=== PATIENT | female | born 1945 | race Caucasian/White ===

== ENCOUNTER 2017-03-11 00:14 | Inpatient (IN) ==
[2017-03-11 01:06] LABS: MANUAL DIFF NEEDED? NO
[2017-03-11 01:12] LABS: BASO% 0.1 % (0.0-0.8); EOS# 0.32 X1000 (0.0-0.7); EOS% 3.5 % (0.0-10.0); HEMATOCRIT 33.9 % (37.0-47.0); HEMOGLOBIN 10.6 g/dL (12.0-16.0); IMM GRAN# 0.04 X1000 (0.0-0.04); IMM GRAN% 0.4 % (0.0-0.5); LYMPH# 1.38 X1000 (1.2-3.4); LYMPH% 14.9 % (20.5-51.1); MCH 26.6 PG (27-31); MCHC 31.3 g/dL (33-37); MONO# 0.55 X1000 (0.11-0.59); MONO% 5.9 % (1.7-9.3); MPV 11.6 FL (7.4-10.4); NEUT% 75.2 % (42.2-75.2); PLT 237 X1000 (130-400); RBC 3.99 XMIL (4.2-5.4)
[2017-03-11 01:35] LABS: AGAP 12; ALBUMIN 3.1 g/dL (3.5-5.0); ALKALINE PHOSPHATASE 91 U/L (32-104); BUN 13 mg/dL (8-22); CALCIUM 8.9 mg/dL (8.8-10.2); CHLORIDE 102 mmol/L (98-107); COSMO 285; GOT 10 U/L (10-30); GPT 10 U/L (10-36); POTASSIUM 4.4 mmol/L (3.5-5.1); SODIUM 140 mmol/L (136-145); TCO2 26 mmol/L (25-35); TOTAL BILIRUBIN 0.35 mg/dL (0.20-1.00)
[2017-03-11] MEDS ORDERED: DILAUDID IV ONE (02:08)
[2017-03-11] MEDS ORDERED: ZOFRAN IV ONE (02:08)
--- NOTE | 2017-03-11 02:31 | PROVIDER DOCUMENTATION ---
This chart was entered by Kanwal Cardona Scribe, acting as scribe for Lázaro Kirkland MD. HPI-Abdominal Pain/GI Problem - General Stated Complaint: UPPER GI BLEED Time Seen by Provider: 03/11/17 00:18 Source: patient Allergies/Adverse Reactions: Patient Allergies Allergy/AdvReac Type Severity Reaction Status Date / Time Penicillins Allergy Severe ANAPHYLAXIS Verified 03/11/17 00:32 Home Medications: Home Medication List Medication Instructions Recorded Confirmed Last Taken Type Acetaminophen [Tylenol] 2 each PO DIRECTED 03/11/17 03/11/17 Unknown History Aspirin [Aspirin EC] 81 mg PO QAM 03/11/17 03/11/17 Unknown History Famotidine [Pepcid] 20 mg PO DAILY 03/11/17 03/11/17 Unknown History I-Car 1 tab PO QAM 03/11/17 03/11/17 Unknown History Insulin Glargine [Lantus] 47 units SUBQ QHS 03/11/17 03/11/17 Unknown History Linaclotide [Linzess] 145 mcg PO DIRECTED 03/11/17 03/11/17 Unknown History Lisinopril 20 mg PO QAM 03/11/17 03/11/17 Unknown History Nut.sup,Spec.frm,l-Fr,Iron/Fos 3 oz PO DIRECTED 03/11/17 03/11/17 Unknown History [Twocal Hn Liquid] Tramadol [Ultram] 50 mg PO DIRECTED 03/11/17 03/11/17 Unknown History - History of Present Illness-ABD Nature of Presenting Problems: 71 Y/O F presets to ED with vomiting reported as being brown emesis, normal now , c/o of upper ABD pain, disoriented. Abdominal Pain Onset Location: reports: RUQ, LUQ Pain Radiation: reports: no radiation Quality of Pain: reports: aching Severity in ED: reports: moderate Onset/Duration: reports: this morning Timing: reports: still present, improving Activities at Onset: reports: none Associated Symptoms: reports: vomiting # of Vomiting Episodes: 1 Emesis Description: reports: other (brown) Review of Systems - Adult - REVIEW OF SYSTEMS - ADULT Constitutional: denies: chills, fever Eyes: reports: no symptoms reported Ears, Nose, Mouth & Throat: reports: no symptoms reported Cardiovascular: reports: no symptoms reported Respiratory: reports: no symptoms reported Gastrointestinal: reports: abdominal pain, vomiting Genitourinary: reports: no symptoms reported Musculoskeletal: reports: no symptoms reported Integumentary: reports: no symptoms reported Neurological: reports: no symptoms reported Psychiatric: reports: no symptoms reported Endocrine: reports: no symptoms reported Hematologic/Lymphatic: reports: no symptoms reported Allergic/Immunologic: reports: no symptoms reported All Other Systems: Reviewed and Negative Past History - Adult - PAST MEDICAL HISTORY-ADULT Review of Records: reports: Old Records Reviewed, Nursing Assessment Review, Medications Reviewed, Social history reviewed & non-contributory. Cardiovascular: reports: hyperlipidemia Gastrointestinal: reports: GERD Genitourinary: reports: dialysis Musculoskeletal: reports: chronic pain Neurological: reports: CVA, dementia Endocrine/Immune: reports: Diabetes, thyroid disorder - PRIOR SURGERIES/PROCEDURES Surgical/Procedure History: reports: orthopedic (extremity) (right elbow, left wrist) - PRIOR HOSPITALIZATIONS Prior Hospitalizations: reports: for other non-related - IMMUNIZATION STATUS Childhood Immunizations: See Nurse Assessment Flu Vaccine: See Nurse Assessment - FAMILY HISTORY Family History: reviewed, not pertinent - SOCIAL HISTORY Smoking: non-smoker Substance Use: none/never Alcohol Use Frequency: never Living Situation: family Physical Exam-General - PHYSICAL EXAM-ADULT Initial Vital Signs Reviewed: Yes - CONSTITUTIONAL General Appearance: no apparent distress, obese, other (disoriented) - EYES Eyes: PERRL/EOMI, pink conjunctivae, fundi clear, no AV nicking - HEAD, EARS, NOSE, MOUTH & THROAT HENMT: normocephalic/atraumatic, moist mucous membranes, normal ENT inspection, TMs normal, pharynx normal - NECK Neck: non-tender, full range of motion, supple, normal inspection - RESPIRATORY Respiratory: chest non-tender, lungs clear, normal breath sounds - CARDIOVASCULAR Cardiovascular: normal peripheral pulses, regular rate, rhythm - GASTROINTESTINAL (ABDOMEN) Abdominal Exam: normal bowel sounds, non tender, soft - GENITOURINARY Rectal Exam: other (rectal exam premored unable to collect stool.) - LYMPHATIC Lymphatic: no adenopathy - MUSCULOSKELETAL Back Exam: normal inspection, no CVA tenderness, no vertebral tenderness Extremity: normal range of motion - SKIN Integumentary: normal color, normal turgor, warm/dry - PSYCHIATRIC Psych/Mental Status: disoriented x 3 Progress - PLAN OF CARE/RESULTS Progress/Plan/Lab Results: Orders Category Date Time Status FLAT/UPRIGHT ABD/1 VIEW CHEST [RAD] Stat Exams 03/11/17 00:18 Ordered CBC WITH ELECTRONIC DIFF [HEME] Stat Lab 03/11/17 00:18 Uncollected CMP [COMPREHENSIVE METABOLIC PANEL] [CHEM] Stat Lab 03/11/17 00:18 Uncollected Result Diagrams: 03/11/17 00:35 03/11/17 00:35 - XRAY 1 XRAY Study: Abdomen Impression: Abnormal XRAY Interpretation: small bowel obstruction - CONSULTS/PCP/HOSPITALIST Notification #1 *Consult/PCP/Hospitalist*: Dr. Cortez Time Discussed: 02:07 Reason/Comments: Admit Consult Disposition: Admit (accepted) Departure - Departure Time of Disposition Decision: 01:55 DIAGNOSIS: SBO (small bowel obstruction) Disposition: ADMITTED INPATIENT 09 Certified Medical Emergency: Emergent Condition: Good Referrals and Follow-Ups: None,PCP [Primary Care Provider] - - Critical Care Note This patient required my direct personal management.: No This chart was documented by the indicated scribe, (Kanwal Cardona Scribe) and accurately reflects the services I performed and decisions made by me, Lázaro Kirkland MD, as attested by the provider's signature.
[2017-03-11] MEDS: NS 1,000 ML IV SCH ×3 (05:51→18:06)
[2017-03-11] MEDS: HUMULIN R SUBQ SCH ×4 (06:24→22:59)
[2017-03-11 06:48] LABS: PROTIME 10.5 Seconds (9.2-11.7); PTT 26.4 Seconds (22.0-36.0)
--- NOTE | 2017-03-11 07:13 | HISTORY AND PHYSICAL ---
CHIEF COMPLAINT: Abdominal pain, nausea and vomiting. HISTORY OF PRESENTING ILLNESS: A 71-year-old, obese female with a history of diabetes mellitus type 2, GERD, hypertension, bipolar disorder, who is a resident of [facility], was brought to the emergency department because patient had some brown emesis and abdominal pain. Patient was seen in the ER. She had imaging done, and it was read by ER physician as a small bowel obstruction. Due to these presenting symptoms, it was thought that patient would need hospitalization for further management. At the time of my examination, patient complained of abdominal cramping and being nauseated. However she denied any fevers, chills, chest pain, shortness of breath, hemoptysis or any weight changes. Patient is a poor historian. PAST MEDICAL HISTORY: 1. Diabetes mellitus type 2. 2. GERD. 3. Hypertension. 4. Bipolar disorder. 5. Dementia. 6. Hypothyroidism. PAST SURGICAL HISTORY: Tubal ligation. ALLERGIES: Penicillin. CURRENT MEDICATIONS: As listed on the MAR. SOCIAL HISTORY: She denies any history of smoking, alcohol or illicit drug use. She is basically wheelchair bound. FAMILY HISTORY: No history of coronary disease. REVIEW OF SYSTEMS: Twelve point review of systems as listed in the HPI. Other systems negative. PHYSICAL EXAMINATION: GENERAL: Obese female. She is without any respiratory distress. VITAL SIGNS: Temperature 98.4 degrees, pulse 100, respirations 24, blood pressure 129/88. HEENT: Atraumatic, normocephalic. Extraocular movements intact. PERRLA. NECK: No masses. CHEST: Clear to auscultation. CARDIOVASCULAR: Regular rate and rhythm. ABDOMEN: Soft. Diffuse tenderness. EXTREMITIES: +1 edema. NEUROLOGIC: She is awake, alert, oriented x2. : No bladder distention. SKIN: Warm. LABORATORIES AND STUDIES: WBC 9.25, hemoglobin 10.6, hematocrit 33.9, platelets 237,000 sodium 140, potassium 4.4, chloride 102, CO2 of 26, BUN is 13, creatinine 0.6, glucose is 201. ASSESSMENT: A 71-year-old female with a history of diabetes mellitus type 2, GERD, hypertension and bipolar disorder presented to emergency department after she was found at the residential to have brown emesis and complaining of abdominal pain. She was evaluated in the ER. She has had imaging done which did show small bowel obstruction. The patient will need hospitalization for further management. 1. Small bowel obstruction. 2. Diabetes mellitus type 2. 3. Hypertension. 4. Dementia. 5. Bipolar disorder. 6. Morbid obesity. PLAN: 1. We will admit patient to medical floor with telemetry. 2. We will keep patient NPO. Continue support treatment with IV fluids, antiemetics and pain control. 3. Continue serial abdominal exams. If she does not improve will consider consulting general surgery. 4. Continue patient on sliding scale insulin regimen. Monitor blood glucose. 5. We will monitor blood pressure. Resume antihypertensive agents. 6. Resume home medications that she was given at the residential. 7. Put patient on DVT prophylaxis with SCDs. 8. We will continue to follow and reassess. cc: Jonah Cortez MD
--- NOTE | 2017-03-11 08:13 | Diag Imaging Result Document ---
PROCEDURE NAME: FLAT/UPRIGHT ABD/1 VIEW CHEST - 03/11/2017 FLAT AND UPRIGHT ABDOMEN: FINDINGS: There is gas throughout the colon and small bowel with stool in the rectosigmoid and ascending colon. There is diverticulosis in the descending colon. There is no evidence of organomegaly or mass. IMPRESSION: Constipation and possible ileus. AP CHEST: FINDINGS: There is a large hiatal hernia. There are some granulomata in the left lower lobe. Compared to the previous study of 03/13/2015, there has been no significant change. IMPRESSION: Hiatal hernia.
[2017-03-11] MEDS ORDERED: NS 250 ML ONE (08:46)
[2017-03-11 11:58] LABS: IRON SATURATION 12 %; TIBC 170 ug/dL; TOTAL IRON 21 ug/dL (49-151); UNBOUND IRON 149 ug/dL (112-346)
--- NOTE | 2017-03-11 15:52 | PROGRESS NOTE ---
DATE: 03/11/2017 Today Ms. Arroyo referred to be doing fine. Denies any more nausea and no more vomiting. Denies any diarrhea. OBJECTIVE: Vital signs: Blood pressure 91/48, pulse 100, respirations 19, temperature is 98.0 degrees. General: Ms. Arroyo is a 71-year-old morbidly obese, female. She was in bed. No distress. HEENT: Mucosa is slightly dry. Anicteric. Acyanotic. Neck: Supple. Chest: Good air entry bilateral. No crepitations. No rhonchi. Cardiovascular: Regular rate and rhythm. Slightly tachycardic. Abdomen: Distended, nontender. Bowel sounds are present. Did not appreciate any hepatosplenomegaly. Extremities: Maybe trace pedal edema however patient is obese. [employer] APPELLATE LAW CLERK: Patient is alert, oriented x3. No focal neurological deficit. LABORATORY DATA: WBC 9.25, hemoglobin is 10.6, platelet count is 237,000. Chemistries reviewed, completely normal except for glucose of 201. Iron level is 21. Ferritin is 42. B12 is 218 and folate is 4.9. TSH is 0.01 and free T4 is 2.74 consistent with lab hyperthyroidism. An x-ray today shows constipation and possible ileus. ASSESSMENT: 1. Abdominal pain on presentation. An x-ray consistent with constipation with possible ileus. The patient refers to be doing a whole lot better. We are going to start her on clear liquids to see if she is able to tolerate. 2. Diabetes mellitus, controlled. 3. Lab evidence of hyperthyroidism. The patient is overweight, seems to be constipated which are not features of hyperthyroidism. I think she probably might have some form of thyroiditis, maybe Rita's in the face where the enzymes will be elevated. I will therefore do a TP0. We will do thyroid stimulating antibiotics and do radioiodine uptake to see if it is consistent with hyperthyroidism or Graves or it is a thyroiditis. For now we would only put the patient on propranolol to help with the peripheral conversion of all the thyroid hormones. 4. Multi-vitamin/mineral deficiencies. The patient's lab work shows iron deficient. Also B12 and folate deficiency. Not quite sure if it is all nutritional from not eating or is absorptive issues. I will do an intrinsic factor to check on the B12 and make sure she does not have any pernicious anemia since we think she probably has some autoimmune disease with thyroid. 5. History of bipolar disorder. Noted. 6. Dehydration. Will hydrate the patient. I think in general Ms. Arroyo is doing a lot better. We are going to continue with the current hydration and start her on some clear liquids. Do some studies on her thyroid and hopefully will be able to get her out by tomorrow. cc: Ziyad Rose MD MTDD
[2017-03-12] MEDS: NS 1,000 ML IV SCH ×4 (04:14→17:39)
[2017-03-12] MEDS: HUMULIN R SUBQ SCH ×4 (06:29→20:57)
[2017-03-12 06:40] LABS: MANUAL DIFF NEEDED? NO
[2017-03-12 06:44] LABS: BASO% 0.1 % (0.0-0.8); EOS# 0.56 X1000 (0.0-0.7); EOS% 8.3 % (0.0-10.0); HEMATOCRIT 31.1 % (37.0-47.0); HEMOGLOBIN 9.6 g/dL (12.0-16.0); IMM GRAN# 0.02 X1000 (0.0-0.04); IMM GRAN% 0.3 % (0.0-0.5); LYMPH# 1.68 X1000 (1.2-3.4); MCH 26.5 PG (27-31); MCHC 30.9 g/dL (33-37); MCV 85.9 FL (81-99); MONO# 0.43 X1000 (0.11-0.59); MONO% 6.4 % (1.7-9.3); MPV 11.5 FL (7.4-10.4); NEUT% 59.9 % (42.2-75.2); PLT 204 X1000 (130-400); RBC 3.62 XMIL (4.2-5.4)
[2017-03-12 07:11] LABS: AGAP 10; BUN 8 mg/dL (8-22); CALCIUM 8.6 mg/dL (8.8-10.2); CHLORIDE 108 mmol/L (98-107); COSMO 282; POTASSIUM 4.6 mmol/L (3.5-5.1); SODIUM 143 mmol/L (136-145); TCO2 25 mmol/L (25-35)
[2017-03-12] MEDS: VITAMIN B-12 PO SCH (10:23)
[2017-03-12] MEDS: FOLIC ACID PO SCH (10:23)
--- NOTE | 2017-03-12 11:55 | PROGRESS NOTE ---
DATE: 03/12/2017 SUBJECTIVE: Today, Ms. Arroyo referred to be doing fine. She actually wished she could be going home. She has not had any bowel movement. OBJECTIVE: Vital Signs: Blood pressure is 147/51, pulse of 83, respirations 19, temperature is 98.0. General: Ms. Arroyo is a 71-year-old, morbidly obese, female. She is in bed, no distress. HEENT: Mucosa is pink and moist. Anicteric. Acyanotic. Neck: Supple. Chest: Clear. Cardiovascular: Regular rate and rhythm. Abdomen: Soft, nontender. Bowel sounds are present. Extremities: No pedal edema. JEWELRY SALES: Patient is alert. No focal neurological deficit. LABORATORY DATA: WBC is 6.73, hemoglobin is 9.6, platelet count of 204. Chemistry is reviewed, completely normal. Patient's vitamin D level is 5.0. ASSESSMENT AND PLAN: 1. Abdominal pain, nausea, vomiting on presentation. X-ray consistent with constipation with possible ileus. The patient does not have any more vomiting. She is tolerating her diet. Has not had any bowel movement. We will put the patient on MiraLAX to help with bowel movements. 2. Lab evidence of hyperthyroidism. We are still pending the thyroid radioiodine uptake test and also antibiotics. So far TPO is negative. 3. Multivitamin and mineral deficiencies (B12, folate and vitamin D). We would replace all of these. 4. History of bipolar disorder noted. 5. Clinical dehydration, will continue with gentle IV fluids. In general, Ms. Arroyo continues to be stable. Has not had any bowel movements, so will go ahead and give her some MiraLAX and repeat a KUB, to make sure there is not any underlying obstructive pattern. Will continue with the IV fluids. We will start the patient on propranolol and will be waiting Tuesday to do the radioactive thyroid scan. cc: Ziyad Rose MD
--- NOTE | 2017-03-12 13:14 | Diag Imaging Result Document ---
PROCEDURE NAME: KUB ABDOMEN - 03/12/2017 PORTABLE AP SUPINE ABDOMEN: COMPARISON: Compared with 03/11/2017. FINDINGS: There has been development of gaseous distention of the stomach. There is gas visible in nondistended to slightly distended small bowel and colon, with an overall amount of bowel gas visible mildly decreased compared to the previous exam. There is decreased retained fecal debris in the colon compared to previous exam, but there is increased retained fecal debris in the rectum. IMPRESSION: Development of gaseous distention of stomach. Nonspecific bowel gas pattern otherwise. Decreased retained fecal debris in the colon, but increased retained fecal debris in the rectum compared to the previous exam. This may or may not relate to early rectal fecal impaction.
[2017-03-12] MEDS: INDERAL PO SCH ×2 (13:20→17:30)
[2017-03-12] MEDS: VITAMIN D PO SCH (13:20)
[2017-03-12] MEDS: MIRALAX PO SCH (13:21)
[2017-03-12] MEDS: ZOFRAN IV PRN ×2 (15:36→20:19)
[2017-03-12] MEDS: TORADOL IV PRN (20:19)
[2017-03-13] MEDS: NS 1,000 ML IV SCH ×2 (06:06→19:20)
[2017-03-13 06:17] LABS: MANUAL DIFF NEEDED? NO
[2017-03-13 06:21] LABS: BASO% 0.2 % (0.0-0.8); EOS# 0.49 X1000 (0.0-0.7); EOS% 8.4 % (0.0-10.0); HEMATOCRIT 28.7 % (37.0-47.0); HEMOGLOBIN 8.8 g/dL (12.0-16.0); LYMPH# 1.57 X1000 (1.2-3.4); MCH 26.3 PG (27-31); MCHC 30.7 g/dL (33-37); MCV 85.9 FL (81-99); MONO# 0.45 X1000 (0.11-0.59); MONO% 7.7 % (1.7-9.3); MPV 11.2 FL (7.4-10.4); NEUT% 56.7 % (42.2-75.2); PLT 199 X1000 (130-400); RBC 3.34 XMIL (4.2-5.4)
[2017-03-13 06:42] LABS: AGAP 10; BUN 10 mg/dL (8-22); CALCIUM 8.4 mg/dL (8.8-10.2); CHLORIDE 110 mmol/L (98-107); COSMO 287; SODIUM 145 mmol/L (136-145); TCO2 25 mmol/L (25-35)
[2017-03-13] MEDS: HUMULIN R SUBQ SCH ×4 (07:51→23:13)
[2017-03-13] MEDS: INDERAL PO SCH ×3 (09:37→16:44)
[2017-03-13] MEDS: FOLIC ACID PO SCH (09:37)
[2017-03-13] MEDS: VITAMIN B-12 PO SCH (09:37)
[2017-03-13] MEDS: VITAMIN D PO SCH (09:37)
[2017-03-13] MEDS: MIRALAX PO SCH (09:37)
--- NOTE | 2017-03-13 13:57 | PROGRESS NOTE ---
DATE: 03/13/2017 SUBJECTIVE: Today Ms. Arroyo refers to be doing fine. She did not actually have any major complaints. OBJECTIVE: Vital signs: Blood pressure is 157/74, pulse of 74, respirations 20, temperature is 97.9 degrees. General: Ms. Arroyo is a 71-year-old, morbidly obese, female. She was in bed. No distress. HEENT: Mucosa is pink and moist. Anicteric. Acyanotic. Neck: Supple. Chest: Clear. Cardiovascular: Regular rate and rhythm. No murmurs. No rubs. No gallops. Abdomen: Soft. Extremities: No pedal edema. BOOKING MANAGER: Patient is alert and oriented x4. LABORATORY DATA: WBC is 5.82, hemoglobin is 8.8, platelet count is 199,000. Chemistry is reviewed, completely normal. Intrinsic factor block antibody is negative. IMAGING STUDIES: A KUB done yesterday showed development of gaseous distention of the stomach and decreased retained fecal debris. ASSESSMENT: 1. Abdominal pain, nausea, and vomiting on presentation. This has improved. We think it is related to underlying constipation. 2. Constipation, improved. 3. Laboratory evidence of hyperthyroidism. Patient is pending radioiodine uptake test. 4. Multivitamin and mineral deficiencies (nutritional cause). Will continue to replace this. 5. Clinical dehydration. Patient is getting gentle IV fluids. 6. Bipolar disorder, noted. PLAN: In general, I think Ms. Arroyo is doing fine. We will continue with the gentle hydration. We will also continue with the current symptomatic management for the constipation. We are pending the radioiodine uptake test tomorrow and hopefully discharge her. cc: Ziyad Rose MD
[2017-03-13] MEDS: TORADOL IV PRN (19:21)
[2017-03-14] MEDS: HUMULIN R SUBQ SCH ×3 (06:44→17:38)
[2017-03-14] MEDS: NS 1,000 ML IV SCH (07:34)
--- NOTE | 2017-03-14 09:21 | Diag Imaging Result Document ---
PROCEDURE NAME: KUB ABDOMEN - 03/14/2017 KUB ABDOMEN: Compared with 03/12/2017. FINDINGS: There is gas visible in nondistended colon. There is less retained fecal debris in the rectum compared to the previous exam. There is gas visible within multiple small-bowel loops. There is no substantial gaseous small-bowel distention which would suggest small-bowel obstruction identified, however. IMPRESSION: Decrease in retained fecal debris in the rectum compared to the previous exam. Nonspecific bowel gas pattern. There is gas visible within multiple mostly nondistended small- bowel loops, but there is no indication of small-bowel obstruction.
[2017-03-14] MEDS: VITAMIN B-12 PO SCH (10:42)
[2017-03-14] MEDS: VITAMIN D PO SCH (10:42)
[2017-03-14] MEDS: FOLIC ACID PO SCH (10:42)
[2017-03-14] MEDS: MIRALAX PO SCH (10:42)
[2017-03-14] MEDS: INDERAL PO SCH ×3 (10:43→20:47)
--- NOTE | 2017-03-14 15:20 | PROGRESS NOTE ---
DATE: 03/14/2017 SUBJECTIVE: Today, Ms. Arroyo refers to be doing a whole lot better. She just did the 1st part of her testing for the radio uptake testing. OBJECTIVE: Vital signs: Blood pressure is 151/61, pulse of 71, respirations 20 , temperature 98.2 degrees. General: Ms. Arroyo is a 69-year-old female. She is in bed and does not seem to be in any remarkable distress. HEENT: Mucosa is pink and moist. Anicteric. Acyanotic. Neck: Supple. Chest: Clear. Cardiovascular: Regular rate and rhythm. Abdomen: Soft, distended, but nontender. Bowel sounds are present. Extremities: No pedal edema. EXCHANGE CLERK: Patient is alert and oriented. LABORATORY DATA: None for today. Glucose is 180. A KUB did show decrease in retained fecal debris in the rectum compared to the previous exam. No indication of small bowel obstruction. ASSESSMENT: 1. Abdominal pain, nausea and vomiting secondary to constipation. This is progressively improving. 2. Laboratory evidence of hyperthyroidism still pending. The radioiodine uptake test. 3. Multivitamin and mineral deficiencies (vitamin B12, folate and vitamin D). We think this is all nutritional. We will continue to replace that. 4. Clinical dehydration. Patient is getting gentle fluids. 5. Bipolar disorder noted. 6. Morbid obesity. Patient has been counseled. In general, I think Ms. Arroyo is relatively stable. Nausea and vomiting is completely resolved and constipation is also improving. She is due for the radioiodine uptake test. Once that is done and we get our results early tomorrow morning, we will discharge the patient. cc: Ziyad Rose MD MTDD
[2017-03-14] MEDS: ZOFRAN IV PRN (17:56)
[2017-03-14] MEDS: TORADOL IV PRN (20:47)
[2017-03-15] MEDS: HUMULIN R SUBQ SCH ×5 (02:33→22:15)
[2017-03-15] MEDS: VITAMIN B-12 PO SCH (08:55)
[2017-03-15] MEDS: MIRALAX PO SCH (08:56)
[2017-03-15] MEDS: INDERAL PO SCH ×3 (08:56→18:16)
[2017-03-15] MEDS: TORADOL IV PRN ×2 (08:56→21:03)
[2017-03-15] MEDS: VITAMIN D PO SCH (08:56)
[2017-03-15] MEDS: FOLIC ACID PO SCH (08:56)
[2017-03-15] MEDS: NS 1,000 ML IV SCH ×2 (12:43→22:15)
--- NOTE | 2017-03-15 13:37 | DISCHARGE SUMMARY ---
ADMISSION DATE: 03/11/2017 DISCHARGE DATE: 03/15/2017 CONSULTATIONS: None. PERTINENT PROCEDURES: 1. Abdominal x-ray showed hiatal hernia. 2. Follow up abdominal x-ray showed development of gaseous distention in the stomach, nonspecific bowel-gas pattern. Decreased retained fecal debris in the colon, but increased retained fecal debris in the rectum. 3. Third abdominal x-ray showed decreasing retained fecal debris in the rectum compared to previous exam. Gas visible within multiple, mostly nondistended small bowel loops, but no indication of a small-bowel obstruction. 4. Patient also underwent a thyroid uptake scan. DISCHARGE DIAGNOSES: 1. Abdominal pain, nausea, vomiting, secondary to constipation, improved. 2. Laboratory evidence of hyperthyroidism still pending radioactive iodine uptake test. 3. Multiple vitamin and mineral deficiencies, B 12, folate and vitamin D. Continue with supplementation. 4. Clinical dehydration, resolved. 5. Bipolar disorder. Aware. Stable. 6. Morbid obesity. The patient has been counseled against diet and exercise. HOSPITAL COURSE: Ms. Arroyo is a 71-year-old, obese female with a history of diabetes mellitus type 2, GERD, hypertension, bipolar, who was a resident of [facility]. She was brought to the emergency room because of some brown emesis and abdominal pain. The patient was evaluated in the ED. Abdominal x-ray was read by the ED physician for small-bowel obstruction. The patient was admitted to the medical floor with telemetry. She was kept n.p.o. Continue support with treatment of IV fluids and antiemetics and pain control, as well as a series of abdominal x-rays. The patient was found to be hypothyroid. I did a thyroid uptake scan; still pending those results. The patient continued to have abdominal pain, nausea and vomiting on presentation. Her original x-ray was consistent with constipation with a possible ileus. The patient's nausea and vomiting had resolved. She was tolerating a diet. She was placed on MiraLAX. The patient was also noted to be clinically dehydrated. She was gently rehydrated with IV fluids. Ms. Arroyo remained stable. Her nausea and vomiting have completely resolved, and her constipation is also improving. She did undergo the first part of her testing for the radio uptake on 03/14 and the remainder on 03/15. The patient is appropriate for discharge to rehab today. Temperature is 97.7 degrees, heart rate 69, respirations 20, blood pressure 155/75, O2 is 97% on room air. DISCHARGE DIET: Clear liquids and advance as tolerated. DISCHARGE MEDICATIONS: 1. Tylenol 325 mg 2 each p.o. as directed. 2. Aspirin 81 mg p.o. q.a.m. 3. Vitamin B 12 1000 mcg p.o. daily. 4. Pepcid 20 mg p.o. daily. 5. Folic acid 1 mg p.o. daily. 6. Icar 1 tab p.o. q.a.m. 7. Lantus 47 units subcutaneous at bedtime. 8. Linzess 145 mcg p.o. as directed. 9. Tapazole 5 mg p.o. b.i.d. 10. TwoCal HN liquid 3 ounces p.o. as directed. 11. MiraLAX 17 g p.o. daily. 12. Inderal 10 mg p.o. t.i.d. 13. Ultram 5 mg p.o. daily. FOLLOW UP: Patient is being discharged to rehabilitation. Patient can return to the ED for any worsening of symptoms. DISCHARGE TIME: 30 minutes. Dictated by FREDRICK Haas for Ziyad Rose MD cc: Ziyad Rose MD
[2017-03-15] MEDS: ZOFRAN IV PRN (15:43)
--- NOTE | 2017-03-15 18:01 | Diag Imaging Result Document ---
PROCEDURE NAME: KUB ABDOMEN - 03/15/2017 KUB ABDOMEN: COMPARISON: 03/14/2017. FINDINGS: There is mild gaseous distention of the stomach. There is gas visible in mostly nondistended colon and rectum. There is gas visible in multiple mostly nondistended small bowel loops. The amount of visible small-bowel gas has decreased a bit compared to the previous exam. There is no substantial gaseous small bowel distention identified. There is small-bowel gas noted at the superolateral right hip region which presumably is located at the right lower anterior pelvic wall hernia which was seen on the 01/25/2015 CT abdomen and pelvis. IMPRESSION: Mild gaseous distention of stomach. Nonspecific bowel gas pattern otherwise. There is small bowel gas visible over the superolateral right hip region which is presumably located in the right lower anterior pelvic wall hernia which was seen on the 01/25/2015 CT scan.
[2017-03-15] MEDS: TAPAZOLE PO SCH (20:59)
[2017-03-15] MEDS ORDERED: MORPHINE IM ONE (22:04)
[2017-03-16] MEDS: HUMULIN R SUBQ SCH ×4 (06:07→21:40)
[2017-03-16 07:12] LABS: BASO% 0.1 % (0.0-0.8); HEMATOCRIT 33.5 % (37.0-47.0); HEMOGLOBIN 10.5 g/dL (12.0-16.0); IMM GRAN# 0.15 X1000 (0.0-0.04); LYMPH% 4.7 % (20.5-51.1); MANUAL DIFF NEEDED? YES; MCH 26.6 PG (27-31); MCHC 31.3 g/dL (33-37); MCV 84.8 FL (81-99); MONO# 0.47 X1000 (0.11-0.59); MONO% 3.1 % (1.7-9.3); MPV 11.4 FL (7.4-10.4); NEUT% 91.1 % (42.2-75.2); PLT 327 X1000 (130-400); RBC 3.95 XMIL (4.2-5.4)
[2017-03-16 07:28] LABS: AGAP 20; BUN 13 mg/dL (8-22); CALCIUM 8.9 mg/dL (8.8-10.2); CHLORIDE 102 mmol/L (98-107); COSMO 292; POTASSIUM 4.6 mmol/L (3.5-5.1); SODIUM 141 mmol/L (136-145); TCO2 19 mmol/L (25-35)
[2017-03-16 07:51] LABS: BANDS 4 % (0-1); LYMPHS 6 % (21-51)
--- NOTE | 2017-03-16 08:32 | Diag Imaging Result Document ---
PROCEDURE NAME: CT ABD/PELVIS ORAL CONTR ONLY - 03/16/2017 CT ABDOMEN AND PELVIS WITH ORAL CONTRAST ONLY: COMPARISON: Compared to 01/25/2015. FINDINGS: There are small bilateral pleural effusions. The one on the right measures 15 mm posteriorly and inferiorly in the midline where the one on the left measures 9 mm. There is a small to moderate sized hiatal hernia and there is oral contrast in the distal esophagus. There is calcification around the wall of the gallbladder versus a peripherally calcified large stone. No biliary ductal dilatation. Normal spleen and adrenal glands. Normal noncontrasted pancreas and liver. No renal stones. No hydronephrosis. Moderate atherosclerosis. No aneurysmal dilatation of the aorta. The stomach is distended with air. The bowel loops are not distended. No inflammation about the cecum. No abscess. The urinary bladder is distended and appears normal. The uterus is lobulated containing multiple fibroids. There are fat-filled inguinal hernias. No bowel loops within these. No free air. IMPRESSION: 1. Air-distended stomach, but no bowel obstruction. 2. Hiatal hernia. 3. Small pleural effusions. 4. Peripherally calcified gallstone versus calcification within the wall of the gallbladder. 5. Uterine fibroids. 6. Fat-filled inguinal hernias. [facility]
--- NOTE | 2017-03-16 09:27 | Diag Imaging Result Document ---
PROCEDURE NAME: THYROID SCAN/UPTAKE - 03/12/2017 NUCLEAR MEDICINE THYROID SCAN: COMPARISON: None available. FINDINGS: 319 mCi of iodine-123 was administered orally and images of the thyroid were obtained in the usual fashion post administration. There is mildly increased activity involving the right thyroid lobe as compared to the left. It is fairly diffuse but is more concentrated at the lower portion of the thyroid. Correlation with thyroid ultrasound is recommended to assure that there is no underlying hyperfunctioning nodule. No other focal increased uptake or focal photopenia is identified to indicate other hyperfunctioning or hypofunctioning nodules. The 6-hour iodine uptake is 18.6%. The 24-hour uptake is 27.4%. IMPRESSION: 1. Mildly increased activity in the right thyroid lobe as compared to the left. Please see above discussion. 2. Somewhat elevated 6-hour iodine uptake.
[2017-03-16] MEDS: MIRALAX PO SCH ×2 (10:27→20:25)
[2017-03-16] MEDS: TAPAZOLE PO SCH ×2 (10:28→20:25)
[2017-03-16] MEDS: FOLIC ACID PO SCH (10:29)
[2017-03-16] MEDS: VITAMIN D PO SCH (10:29)
[2017-03-16] MEDS: INDERAL PO SCH ×3 (10:29→17:28)
[2017-03-16] MEDS: VITAMIN B-12 PO SCH (10:29)
[2017-03-16] MEDS: NS 1,000 ML IV SCH (10:30)
--- NOTE | 2017-03-16 16:42 | PROGRESS NOTE ---
DATE: 03/16/2017 SUBJECTIVE: Today, Ms. Arroyo refers to be doing fine. She was sitting up in a chair when we evaluated her. The patient continues to have dry heaves. She was almost discharged yesterday but we had to keep her because of persistent nausea and vomiting with some dark coffee-ground material. OBJECTIVE: Vital Signs: Stable. Blood pressure is 152/78, pulse of 84, respirations 18, temperature is 98.1 degrees. Physical exam is unchanged from yesterday. LABORATORY DATA: WBC is 15.02, hemoglobin is 10.5, platelet count of 327,000. Chemistry is also reviewed and is completely unremarkable except for glucose of 290. A CT scan of the abdomen with oral contrast was done which showed air-distended stomach but no bowel obstruction. ASSESSMENT: 1. Nausea and vomiting with CT scan showing a distended stomach concerning for pyloric obstruction. We will consult the boxcar weigher to evaluate the patient for possible endoscopy. We will, therefore, withhold the discharge for today. 2. Hyperthyroidism. We will continue with thyroid medications. 3. Multivitamin and mineral deficiencies (vitamin B 12, folate, and vitamin D). We will continue with replacement. 4. Bipolar disorder. 5. Morbid obesity noted. 6. Hyperglycemia. Patient is a diabetic. We will do the A1c to check how this has been controlled. If the esophagogastroduodenoscopy is more remarkable, we will go ahead and do gastric emptying study to document the possibility of gastroparesis. cc: Ziyad Rose MD MTDD
[2017-03-16] MEDS: NORCO-7.5 PO PRN (17:22)
[2017-03-16] MEDS: PROTONIX IV SCH (17:28)
[2017-03-16] MEDS: DULCOLAX PR SCH (20:25)
[2017-03-16] MEDS: LANTUS SUBQ SCH (21:40)
[2017-03-17] MEDS: NS 1,000 ML IV SCH ×2 (01:14→12:25)
[2017-03-17] MEDS: PROTONIX IV SCH ×2 (04:12→18:49)
--- NOTE | 2017-03-17 05:50 | CONSULTATION ---
DATE OF CONSULTATION: 03/16/2017 ATTENDING PHYSICIAN: Dr. Rose. PRIMARY CARE DOCTORS: None. REASON FOR CONSULTATION: Nausea, vomiting. HISTORY OF PRESENT ILLNESS: Ms. Arroyo is a 71-year-old female who was admitted on 03/11/2017 with abdominal pain along with nausea and vomiting. She is a resident of [facility]. [facility] In the ER she was diagnosed with a small obstruction. She was managed conservatively with IV fluids, IV PPIs, IV antiemetics and she felt better. She was supposed to be discharged yesterday but she started having repeat nausea and vomiting and coffee-ground emesis. She had imaging done along with CT of the abdomen pelvis with oral contrast which showed: 1) Small bilateral pleural effusions. 2) Small to moderate-sized hiatal hernia. 3) Calcification around the wall of the gallbladder versus peripherally calcified large stone. 4) Normal spleen and adrenal glands. 5) Normal noncontrast pancreas and liver. No renal stones. Moderate atherosclerosis. The stomach is distended with air. The bowel loops are not distended. No inflammation about the cecum. No abscess. The urinary bladder is distended, appears normal. Uterus is lobular, containing multiple fibroids. There are fat filled inguinal hernias. No free air was noted. Gastroenterology was consulted for intermittent nausea and vomiting for a week with recent worsening and coffee-ground emesis. PAST MEDICAL HISTORY: 1. Type 2 diabetes. 2. Hypertension. 3. Bipolar disorder. 4. Dementia. 5. Hypothyroidism. 6. Reflux disease. 7. Morbid obesity. PAST SURGICAL HISTORY: Tubal ligation. ALLERGIES: Penicillin. SOCIAL HISTORY: She denies any history of alcohol, tobacco, or illicit drugs. She is wheelchair bound. She is a resident of [facility]. FAMILY HISTORY: Noncontributory. REVIEW OF SYSTEMS: Denies any current fevers, rigors, chills, chest pain, shortness of breath. She complains of epigastric discomfort and nausea. She had thrown up once a day. She does complain of some intermittent constipation. She complains of arthritis and limited mobility. She denies any neurologic complaints, although she has a known history of bipolar disorder and mild dementia. MEDICATIONS: In the hospital include vitamin D, vitamin B12, folic acid, sliding-scale, Humulin insulin, methimazole, IV fluids, Zofran, MiraLAX 17 g p.o. daily, propranolol 10 mg p.o. t.i.d., morphine, ketorolac 30 mg IV q.6 hours. PHYSICAL EXAMINATION: Vital signs: Temperature 98.1 degrees, pulse rate of 84 , respiratory rate of 20, blood pressure 152/78, saturating 98% room air. Body weight of 211 pounds 1.6 ounces, BMI of 34.1 kg. General appearance: Morbidly obese, sitting in a chair, in no acute distress. HEENT: Mild pallor. No icterus. Pupils equal, react to light and accommodation. Neck: Supple. Chest: Decreased breath sounds. Cardiac: Regular rhythm. No murmur. Abdomen : Morbidly obese. Mildly protuberant. Mild discomfort in the epigastric region. No rebound or guarding. Liver and spleen could not be felt because of body habitus. Extremities: No cyanosis, clubbing. Mild bilateral lower extremity edema noted. She has arthritis visible in the lower extremities. Neurologic: She is awake and alert. Answers simple questions. LABS: Hemoglobin and hematocrit is 10.5 and 33.5, white count of 15.02, platelet count of 327,000, MCV of 84.8. INR 1. Sodium 141, potassium 4.6, chloride 102, bicarb 19, anion gap of 20, BUN of 13, creatinine 0.6, glucose of 290, calcium is 8.9. Iron level: Percent saturation of 12%, iron level of 21, TIBC 170. AST 10, ALT 10, alkaline phosphatase 91, total protein 6, albumin 2.1. B12 218, folate of 4.9, ferritin of 42. Thyroid stimulating immunoglobulin less than 1. Her TSH was 0.01. IMPRESSION AND PLAN: 1. Intermittent nausea and vomiting for the last 1 week and coffee-ground emesis. 2. CT abdomen showing distended stomach, rule out pyloric stenosis. 3. Morbid obesity. 4. Type 2 diabetes. 5. Hyperthyroidism. 6. Bipolar disorder. 7. Hypertension. 8. Constipation. RECOMMENDATIONS: 1. Will start the patient on PPIs twice daily. 2. Will start her on MiraLAX twice daily and also Dulcolax at bedtime. 3. Will keep a close eye on her hemoglobin and hematocrit and type and cross and transfuse to keep hematocrit more than 27%. 4. Will schedule the patient for an EGD tomorrow. Will try to reach family to obtain consent as patient has mild dementia. 5. Will also check an abdominal x-ray in the morning. 6. The patient has a slightly higher risk of endoscopic procedure because of multiple medical comorbid conditions including morbid obesity, diabetes. This was discussed with the patient and all questions answered. The above plan of care was discussed with the patient and RN. All questions were answered. cc: MD Cam Patricio MD MTDD
[2017-03-17] MEDS: HUMULIN R SUBQ SCH ×3 (06:36→20:48)
[2017-03-17 07:28] LABS: AGAP 16; BUN 12 mg/dL (8-22); CALCIUM 8.8 mg/dL (8.8-10.2); CHLORIDE 104 mmol/L (98-107); COSMO 281; POTASSIUM 4.1 mmol/L (3.5-5.1); SODIUM 139 mmol/L (136-145); TCO2 19 mmol/L (25-35)
[2017-03-17 07:49] LABS: MANUAL DIFF NEEDED? NO
[2017-03-17 07:51] LABS: BASO% 0.1 % (0.0-0.8); EOS# 0.02 X1000 (0.0-0.7); EOS% 0.1 % (0.0-10.0); HEMATOCRIT 28.3 % (37.0-47.0); HEMOGLOBIN 9.1 g/dL (12.0-16.0); IMM GRAN# 0.07 X1000 (0.0-0.04); IMM GRAN% 0.5 % (0.0-0.5); LYMPH# 1.29 X1000 (1.2-3.4); LYMPH% 8.7 % (20.5-51.1); MCH 26.5 PG (27-31); MCHC 32.2 g/dL (33-37); MCV 82.3 FL (81-99); MONO# 1.22 X1000 (0.11-0.59); MONO% 8.2 % (1.7-9.3); MPV 10.9 FL (7.4-10.4); NEUT% 82.4 % (42.2-75.2); PLT 258 X1000 (130-400); RBC 3.44 XMIL (4.2-5.4)
--- NOTE | 2017-03-17 11:04 | PROGRESS NOTE ---
DATE: 03/17/2017 SUBJECTIVE: The patient is currently resting in bed. Her EGD was canceled this morning because we were unable to obtain consent from the family. The patient denies any nausea or vomiting this morning. She denies any abdominal pain. She denies any fevers, rigors, or chills. OBJECTIVE: Vital signs: Temperature 98.4, pulse rate of 102, respiratory rate 18, blood pressure of 142/77, saturating 99% on room air. General Appearance: Obese, lying in bed, in no acute distress. HEENT: Pale conjunctivae. No icterus. Neck: Supple. Abdomen: Obese, soft, nontender, nondistended. Bowel sounds are present. No guarding or rebound. Hepatosplenomegaly could not be felt because of body habitus. Extremities: Bilateral lower extremity edema noted. Mild and chronic-type and arthritis noted in the lower extremities. Neurologic: She is alert and awake and answers some questions. LABORATORY DATA: Her hemoglobin and hematocrit are 9.1 and 28.3, white count of 14.8, platelet count of 258,000, MCV of 82.3. Sodium 139, potassium 4.1, chloride 104, bicarb 19, anion gap of 16, BUN of 12, creatinine 0.6, glucose of 174, calcium is 8.8. INR is 1. Her intrinsic factor blocking antibody is negative. IMPRESSION AND PLAN: 1. Nausea, vomiting, and a CT scan showing a distended stomach concerning for pyloric obstruction. We will have to reschedule esophagogastroduodenoscopy tomorrow. Will try to call the patient's son, who lives in [place], and try to obtain a consent. The patient has mild dementia, although she is awake and alert, but we would like to confirm with the family before proceeding with procedure tomorrow. 2. Reflux disease. She will continue on proton pump inhibitor that was started yesterday. 3. Hyperthyroidism. She is on medication per the primary care team. 4. Morbid obesity. The patient was counseled to lose weight. 5. Constipation. The patient will be kept on bowel regimen. 6. Diabetes, being managed by primary care team. 7. The patient is also scheduled for gastric emptying study done by the primary care team today. Further recommendations to follow. cc: MD Ziyad De Oliveira MD
[2017-03-17] MEDS: FOLIC ACID PO SCH (12:23)
[2017-03-17] MEDS: VITAMIN D PO SCH (12:23)
[2017-03-17] MEDS: TAPAZOLE PO SCH ×2 (12:24→20:48)
[2017-03-17] MEDS: VITAMIN B-12 PO SCH (12:24)
[2017-03-17] MEDS: MIRALAX PO SCH ×2 (12:24→20:49)
[2017-03-17] MEDS: INDERAL PO SCH ×3 (12:24→18:49)
--- NOTE | 2017-03-17 15:42 | Diag Imaging Result Document ---
PROCEDURE NAME: GASTRIC EMPTYING - 03/17/2017 NUCLEAR MEDICINE GASTRIC EMPTYING STUDY.: COMPARISON: None available. FINDINGS: 540 microcuries of technetium-99 sulfur colloid was administered orally with an egg. There is normal activity in the gastric lumen initially. The time to 1/2 emptying is 47 minutes. At 54 minutes, there is 56% emptying. The patient was unable to complete the entire 2-hour study. IMPRESSION: Normal gastric emptying.
[2017-03-17] MEDS: ZOFRAN IV PRN (15:47)
--- NOTE | 2017-03-17 16:02 | PROGRESS NOTE ---
DATE: 03/17/2017 Today Ms. Arroyo refers to be doing a little better. She actually wants to go home. She denies to be vomiting or having any nausea. My understanding though is that GI has already evaluated the patient and they are pending somebody to give a consent for the surgery. OBJECTIVE: Vital signs: Blood pressure is 142/77, pulse of 102 respirations 18 , temperature is 98.4 degrees. Patient is saturating 99% on room air. General Exam: Ms. Arroyo is a 68-year-old morbidly obese, female. She is in bed, not seemingly distressed. HEENT: Mucosa is pink and moist. Anicteric. Acyanotic. Neck: Supple. Chest: Clear. Cardiovascular: Regular rate and rhythm. Abdomen: Soft, nontender. Distended but bowel sounds are present. Extremities: No pedal edema. Patient has some changes of arthritis. RN COMMUNITY: Patient is alert and oriented. LABORATORY DATA: WBC is 14.81, hemoglobin is 9.1, platelet count of 258,000. Chemistry is reviewed, completely normal. ASSESSMENT: 1. Nausea and vomiting with CT scan showing distended stomach concerning for pyloric obstruction as well as possible gastroparesis. Patient was evaluated by GI for endoscopy but they are pending on somebody to sign the consent. EGD has therefore been postponed. We will go ahead and do a nuclear study, gastric empty study to make sure there is not any underlying gastroparesis since patient has very poor diabetes control. 2. Hyperparathyroidism. We will continue with methimazole. 3. Multivitamin and mineral deficiencies (vitamin B12, folate and vitamin D). Will continue to replace. 4. Morbid obesity. 5. Diabetes mellitus. We will continue with current insulin regimen. So, in general I think Ms. Arroyo is no more symptomatic with nausea and vomiting but because of the concern of pyloric obstruction she needs a scope. However we seem to be having difficulty getting somebody to sign the consent. We will do gastric empty studies to see if there is any gastroparesis. cc: Ziyad Rose MD [facility]
[2017-03-17] MEDS: SODIUM CHLORIDE 0.9% INJ SCH (18:49)
[2017-03-17] MEDS: LANTUS SUBQ SCH (20:49)
[2017-03-17] MEDS: DULCOLAX PR SCH (20:49)
[2017-03-17] MEDS: NORCO-7.5 PO PRN (23:14)
[2017-03-18] MEDS: PROTONIX IV SCH (03:26)
[2017-03-18] MEDS: NS 1,000 ML IV SCH (03:26)
[2017-03-18] MEDS: SODIUM CHLORIDE 0.9% INJ SCH (03:26)
[2017-03-18] MEDS: HUMULIN R SUBQ SCH ×4 (06:17→21:49)
[2017-03-18 06:29] LABS: MANUAL DIFF NEEDED? NO
[2017-03-18 06:45] LABS: BASO% 0.1 % (0.0-0.8); EOS# 0.04 X1000 (0.0-0.7); EOS% 0.4 % (0.0-10.0); HEMATOCRIT 28.3 % (37.0-47.0); HEMOGLOBIN 8.9 g/dL (12.0-16.0); IMM GRAN# 0.08 X1000 (0.0-0.04); IMM GRAN% 0.8 % (0.0-0.5); LYMPH# 1.68 X1000 (1.2-3.4); LYMPH% 17.5 % (20.5-51.1); MCH 26.3 PG (27-31); MCHC 31.4 g/dL (33-37); MCV 83.7 FL (81-99); MONO% 9.4 % (1.7-9.3); MPV 11.5 FL (7.4-10.4); NEUT% 71.8 % (42.2-75.2); PLT 220 X1000 (130-400); RBC 3.38 XMIL (4.2-5.4)
[2017-03-18 07:07] LABS: AGAP 11; ALBUMIN 2.4 g/dL (3.5-5.0); ALKALINE PHOSPHATASE 76 U/L (32-104); BUN 12 mg/dL (8-22); CALCIUM 8.4 mg/dL (8.8-10.2); CHLORIDE 107 mmol/L (98-107); COSMO 284; GOT 7 U/L (10-30); GPT 6 U/L (10-36); POTASSIUM 3.5 mmol/L (3.5-5.1); SODIUM 142 mmol/L (136-145); TCO2 24 mmol/L (25-35); TOTAL BILIRUBIN 0.48 mg/dL (0.20-1.00); TOTAL PROTEIN 4.8 g/dL (6.3-8.3)
[2017-03-18] MEDS: INDERAL PO SCH ×3 (10:12→16:47)
[2017-03-18] MEDS: VITAMIN B-12 PO SCH (10:13)
[2017-03-18] MEDS: MIRALAX PO SCH ×2 (10:13→21:49)
[2017-03-18] MEDS: VITAMIN D PO SCH (10:13)
[2017-03-18] MEDS: FOLIC ACID PO SCH (10:13)
[2017-03-18] MEDS: TAPAZOLE PO SCH ×2 (10:13→21:48)
--- NOTE | 2017-03-18 15:20 | DISCHARGE SUMMARY ---
ADMISSION DATE: 03/11/2017 DISCHARGE DATE: 03/18/2017 ADDENDUM: HOSPITAL COURSE: Ms. Arroyo was set for discharge on 03/15/2017 after being admitted for abdominal pain, nausea, vomiting secondary to constipation that had ultimately improved as well as clinical dehydration then patient began vomit up coffee ground emesis. Imaging done of the CT of the abdomen did show distended stomach and to rule out pyloric stenosis GI was consulted. Their recommendations were PPI twice a day, MiraLAX twice a day as well as stool softeners at bedtime, monitor her hemoglobin and hematocrit closely. Patient underwent a gastric emptying study that showed normal gastric emptying. They did have to reschedule an EGD after several attempts to call the patient's son who lives in [place] to try to obtain consent. Patient does have mild dementia. Although she is awake and alert they would like to confirm with the family before proceeding with the procedure. However the patient will now get an EGD as an outpatient and again gastric emptying study was performed to see if there was any gastroparesis. It was normal and the patient will proceed with an EGD on an outpatient basis. Dr. Rose has discussed this with the son . VITAL SIGNS: At the time of her discharge temperature 98.8 degrees, heart rate 99, respirations 18, blood pressure 143/62, O2 is 97% on room air. DISCHARGE MEDICATIONS: 1. Tylenol 650 p.o. as directed. 2. Aspirin 81 mg p.o. q.a.m. 3. Vitamin B12 1000 mcg p.o. daily. 4. Pepcid 20 mg p.o. daily. 5. Folic acid 1 mg p.o. daily. 6. Icar-C 1 tab p.o. q.a.m. 7. Lantus 47 units subcutaneous at bedtime. 8. Linzess 145 mcg p.o. as directed. 9. Lisinopril 20 mg p.o. q.a.m. 10. Taxol 5 mg p.o. b.i.d. 11. TwoCal HN liquid 30 ounces p.o. as directed. 12. MiraLAX 17 g p.o. daily. 13. Inderal 10 mg p.o. t.i.d. 14. Ultram 50 mg p.o. as directed. FOLLOWUP: Patient is being discharged back to [facility]. She will need to follow up with Dr. Brown as outpatient for her EGD. Patient can return to the ED for any worsening symptoms. Dictated by FREDRICK Haas for Ziyad Rose MD cc: Ziyad Rose MD
--- NOTE | 2017-03-18 17:58 | PROGRESS NOTE ---
DATE: 03/18/2017 Today Ms. Arroyo referred to be doing fine. She really wants to go home. I spoke today with the GI colleagues and they reviewed her nuclear studies, gastric empty study which was completely normal. So they thought that the EGD can be done on outpatient basis. PHYSICAL EXAM: Is unchanged. Patient's laboratory data has also been reviewed. All is normal. Patient is therefore going to be discharged to the intermediate if arrangement has been completed. ASSESSMENT: 1. Nausea and vomiting resolved. 2. Hyperthyroidism. 3. Multivitamin and mineral deficiencies. 4. Morbid obesity. 5. Diabetes mellitus. Will be pending final arrangement from social work to get Ms. Arroyo discharged to [facility]. Of note, EGD will be done on outpatient basis. cc: Ziyad Rose MD
[2017-03-18] MEDS: DULCOLAX PR SCH (21:48)
[2017-03-18] MEDS: LANTUS SUBQ SCH (21:48)
[2017-03-18] MEDS: NORCO-7.5 PO PRN (21:53)
[2017-03-19] MEDS: NS 1,000 ML IV SCH ×3 (06:03→06:04)
[2017-03-19] MEDS: HUMULIN R SUBQ SCH ×4 (06:04→20:55)
[2017-03-19] MEDS: FOLIC ACID PO SCH (09:29)
[2017-03-19] MEDS: MIRALAX PO SCH ×3 (09:29→21:05)
[2017-03-19] MEDS: VITAMIN B-12 PO SCH (09:29)
[2017-03-19] MEDS: TAPAZOLE PO SCH ×2 (09:29→20:54)
[2017-03-19] MEDS: INDERAL PO SCH ×3 (09:30→17:07)
[2017-03-19] MEDS: VITAMIN D PO SCH (09:31)
--- NOTE | 2017-03-19 15:37 | PROGRESS NOTE ---
DATE: 03/19/2017 SUBJECTIVE: Today Ms. Arroyo refers to be doing a whole lot better. She denies any cough or any vomiting. She really wants to go home. OBJECTIVE: Vital Signs: Stable. Blood pressure is 154/76, pulse is 93, respiration is 18, temperature is 98.7 degrees. General Exam: Ms. Arroyo is a 71-year-old female. She was sitting up in a chair, not seemingly distressed. HEENT: Mucosa is pink and moist. Anicteric. Acyanotic. Neck: Supple. Chest: Clear. Cardiovascular: Regular rate and rhythm. Abdomen: Distended but nontender. Bowel sounds are present. Extremities: No pedal edema, but patient has excess subcutaneous tissue. LABORATORY DATA: No lab work for today. ASSESSMENT: 1. Nausea and vomiting. Completely resolved. 2. Hyperthyroidism. Patient will continue on the methimazole and propranolol. 3. Multivitamin and mineral deficiencies. We will continue replacing. 4. Diabetes mellitus. Stable. 5. Morbid obesity: Noted. So today Ms. Arroyo is stable. She is not going to get an EGD/colonoscopy. Apparently they called the longterm where she is originally from and they said they do not accept patients during the weekend. We will therefore have to wait until Tuesday to discharge Ms. Arroyo. cc: Ziyad Rose MD
[2017-03-19] MEDS: NORCO-7.5 PO PRN (17:13)
--- NOTE | 2017-03-19 17:35 | PROGRESS NOTE ---
DATE: 03/19/2017 SUBJECTIVE: Patient is resting in bed. She wants to go home. She denies any nausea, vomiting. She is moving her bowels. She denies any abdominal pain. She denies any fever , rigors or chills.Vital signs: Temperature of 98.7 degrees, pulse of 93, respiratory 18, blood pressure 154/76 saturating on room air. General Appearance: Is obese, lying in bed, in no acute distress. HEENT: Pale conjunctiva, no icterus. Neck: Supple. Abdomen: Morbidly obese, soft, nontender, nondistended. Bowel sounds. No rebound, no guarding. Extremities: No cyanosis, clubbing and she has arthritis in feet. Neuro: She was awake and answers questions. LABS: Hemoglobin and hematocrit is 8.9 and 28.3 from yesterday, white count 9.5 , platelet count 220,000. INR 1, sodium 142, potassium 3.5 chloride 107, bicarb 21, anion gap 11, BUN of 12, creatinine 0.2, glucose 126, calcium 8, total bilirubin is 0.48, AST 7, ALT 6 , alkaline phosphatase 76, total protein 4.8, albumin of 2.4. Intrinsic factor blocking antibody is negative. IMPRESSION/PLAN: 1. Nausea and vomiting now resolved. The patient was noted to have distended abdomen on imaging. Her gastric emptying study has been normal thus excluding the possibility of gastric outlet obstruction. The patient wants to go home over the weekend. In this regard patient was encouraged to follow up as an outpatient, to have EGD done if she continues to have intermittent nausea and vomiting. 2. Constipation which is now resolved. Will continue on stool softeners. 3. Hyperthyroidism on methimazole and propranolol per the primary team. 4. Diabetes per the primary team. 5. Morbid obesity, counseling was provided. 6. Gastrointestinal prophylaxis with proton pump inhibitors as before. 7. Anemia. Continue to watch and avoid any NSAIDs. 8. At some point patient will need EGD and colonoscopy for workup of anemia. She lives in a snf. The patient will schedule an outpatient visit. The above plan discussed the patient and the primary care team and all questions. cc: MD STEPAN Patricio
[2017-03-19] MEDS: DULCOLAX PR SCH ×2 (20:54→21:05)
[2017-03-19] MEDS: LANTUS SUBQ SCH (20:55)
[2017-03-19] MEDS ORDERED: INSULIN PEN NEEDLES ONE (21:01)
[2017-03-20] MEDS: HUMULIN R SUBQ SCH ×5 (06:29→21:37)
[2017-03-20] MEDS: VITAMIN B-12 PO SCH (10:52)
[2017-03-20] MEDS: FOLIC ACID PO SCH (10:52)
[2017-03-20] MEDS: INDERAL PO SCH ×3 (10:52→21:35)
[2017-03-20] MEDS: VITAMIN D PO SCH (10:52)
[2017-03-20] MEDS: MIRALAX PO SCH ×2 (10:53→21:42)
[2017-03-20] MEDS: TAPAZOLE PO SCH ×2 (10:53→21:35)
[2017-03-20] MEDS: NORCO-7.5 PO PRN ×2 (10:56→15:53)
--- NOTE | 2017-03-20 16:41 | PROGRESS NOTE ---
DATE: 03/20/2017 SUBJECTIVE: Today Ms. Arroyo refers to be doing okay. No vomiting, no nausea. Has been having regular bowel movement. OBJECTIVE: Vital signs: Blood pressure is 170/94, pulse 107, respirations 22, temperature is 98.2 degrees. General: Ms. Arroyo 71 years old female, morbidly obese. She was in bed. No distress. HEENT: Mucosa is pink and moist. Anicteric. Acyanotic. Neck: Supple. Chest: Clear. Cardiovascular: Regular rate and rhythm. Abdomen: Distended but nontender. Extremities: No pedal edema. Patient has excessive subcutaneous tissue. LABORATORY DATA: None today. Glucose is 115. ASSESSMENT: 1. Nausea and vomiting improved. 2. Constipation improved. 3. Hyperthyroidism. Will continue with methimazole and propranolol. 4. Multivitamin and mineral deficiencies. Will continue a replacing this. 5. Diabetes mellitus stable. 6. Morbid obesity stable. So Ms. Arroyo is doing a whole lot better. She has not had any more nausea and vomiting. She is having also regular bowel movement. Patient has iron deficiency anemia which she will need to follow up as well with GI for GI workup. She is currently not symptomatic so he would she would do this outpatient basis. We hope to discharge Ms. Arroyo tomorrow to her senior living. cc: Ziyad Rose MD
[2017-03-20] MEDS: LANTUS SUBQ SCH (21:37)
[2017-03-20] MEDS: DULCOLAX PR SCH (21:42)
[2017-03-21] MEDS: NORCO-7.5 PO PRN (05:00)
[2017-03-21] MEDS: HUMULIN R SUBQ SCH ×2 (06:29→11:25)
[2017-03-21 08:19] VITALS: BP 159/77
[2017-03-21] MEDS: MIRALAX PO SCH (08:38)
[2017-03-21] MEDS: INDERAL PO SCH ×2 (08:39→12:05)
[2017-03-21] MEDS: VITAMIN B-12 PO SCH (08:39)
[2017-03-21] MEDS: TAPAZOLE PO SCH (08:40)
[2017-03-21] MEDS: FOLIC ACID PO SCH (08:40)
[2017-03-21] MEDS: VITAMIN D PO SCH (08:40)
--- NOTE | 2017-03-21 14:12 | DISCHARGE SUMMARY ---
ADMISSION DATE: 03/11/2017 DISCHARGE DATE: 03/20/2017 ADDENDUM REPORT Ms. Arroyo was initially set for discharge on after being admitted for abdominal pain, nausea and vomiting secondary to constipation that had ultimately improved, as well as clinical dehydration. On the day of her discharge, the patient began to vomit a coffee-ground emesis. CT of the abdomen was performed. It did show a distended stomach. To rule out pyloric stenosis, GI was consulted. Their recommendations were PPI twice daily. MiraLAX twice daily as well as stool softeners at bedtime as well as to monitor her hemoglobin and hematocrit closely. The patient underwent a gastric emptying study that was normal. The patient was set up for a GI workup as an outpatient for her anemia. The patient was again set for discharge on 03/18/2017, however there was a delay in her going to her long-term care facility. So the patient is once again, discharged on 03/20/2017. No acute events over the weekend. VITAL SIGNS: Temperature is 98.6 degrees, heart rate 85, respirations 18, blood pressure 159/77, O2 is 100% on room air. DISCHARGE MEDICATIONS: As per Dr. Rose. Please see MAR. DISPOSITION: The patient is being discharged back to [facility]. DISCHARGE INSTRUCTIONS: She will follow up with Dr. Brown as an outpatient for workup for her anemia. The patient will return to the ED for any worsening of symptoms. Dictated by FREDRICK Haas for Ziyad Rose MD cc: Ziyad Rose MD
== END 2017-03-21 15:04 ==
LOC: ED 00:14 → 3N 04:36 → SUATTDRO 04:36
PROVIDERS: ATTEND Internal Medicine

== ENCOUNTER 2017-04-30 03:38 | Inpatient (IN) ==
[2017-04-30 05:21] LABS: MANUAL DIFF NEEDED? NO
--- NOTE | 2017-04-30 05:21 | PROVIDER DOCUMENTATION ---
HPI-Abdominal Pain/GI Problem - General Chief Complaint: GI Bleed Stated Complaint: R/O GI BLEED Time Seen by Provider: 04/30/17 04:59 Source: patient, [facility] Unable to obtain history due to:: altered Allergies/Adverse Reactions: Patient Allergies Allergy/AdvReac Type Severity Reaction Status Date / Time Penicillins Allergy Severe ANAPHYLAXIS Verified 04/30/17 04:05 Home Medications: Home Medication List Medication Instructions Recorded Confirmed Last Taken Type Acetaminophen [Tylenol] 2 each PO DIRECTED 03/11/17 04/30/17 04/29/17 History Aspirin [Aspirin EC] 81 mg PO QAM 03/11/17 04/30/17 04/29/17 History Famotidine [Pepcid] 20 mg PO DAILY 03/11/17 04/30/17 04/29/17 History I-Car 1 tab PO QAM 03/11/17 04/30/17 04/29/17 History Insulin Glargine [Lantus] 47 units SUBQ QHS 03/11/17 04/30/17 04/29/17 History Linaclotide [Linzess] 145 mcg PO DIRECTED 03/11/17 04/30/17 04/29/17 History Lisinopril 20 mg PO QAM 03/11/17 04/30/17 04/29/17 History Tramadol [Ultram] 50 mg PO DIRECTED 03/11/17 04/30/17 04/29/17 History Cyanocobalamin [Vitamin B-12] 1,000 microgm PO DAILY tablet 03/15/17 04/30/17 04/29/17 Rx Folic Acid 1 mg PO DAILY tablet 03/15/17 04/30/17 04/29/17 Rx Methimazole [Tapazole] 5 mg PO BID tablet 03/15/17 04/30/17 04/29/17 Rx Polyethylene Glycol 3350 [Miralax] 17 gm PO DAILY powder, packet 03/15/1704/3004/29/17 Rx Propranolol [Inderal] 10 mg PO TID tablet 03/15/17 04/30/17 04/29/17 Rx Arginine/Glutamine/Calcium Hmb 1 packet PO BID 04/30/17 04/30/17 04/29/17 History [Antelmo Packet] Furosemide [Lasix] 1 tab PO DAILY 04/30/17 04/30/17 04/29/17 History Insulin Glargine,Hum.rec.anlog 37 units SQ DAILY 04/30/17 04/30/17 04/29/17 History [Lantus] - History of Present Illness-ABD Nature of Presenting Problems: Very minimal history available . She apparently had a melanotic stool and vomited once. Stool guiac was positive and pt sent to ER. Abdominal Pain Onset Location: reports: other (no pain) Pain Radiation: reports: no radiation Quality of Pain: reports: none Activities at Onset: reports: sleep Exposure to sick contacts?: No Modifying Factors: improves with: nothing Associated Symptoms: reports: denies symptoms Last BM: unsure Dark Stools Present?: reports: black, tarry Rectal Bleeding: reports: other (see HPI) # of Vomiting Episodes: 1 Bruising or Bleeding Gums?: No Similar Symptoms Previously?: No Recently seen or treated by another doctor?: No Review of Systems - Adult - REVIEW OF SYSTEMS - ADULT ROS:: unobtainable per condition Constitutional: reports: weight loss Eyes: reports: no symptoms reported Ears, Nose, Mouth & Throat: reports: no symptoms reported Cardiovascular: reports: no symptoms reported Respiratory: reports: no symptoms reported Gastrointestinal: reports: see HPI Genitourinary: reports: no symptoms reported Musculoskeletal: reports: joint pain Integumentary: reports: no symptoms reported Neurological: reports: no symptoms reported Psychiatric: reports: no symptoms reported Endocrine: reports: no symptoms reported Hematologic/Lymphatic: reports: no symptoms reported Allergic/Immunologic: reports: no symptoms reported All Other Systems: Reviewed and Negative Past History - Adult - PAST MEDICAL HISTORY-ADULT Review of Records: reports: Old Records Reviewed, Nursing Assessment Review, Medications Reviewed Cardiovascular: reports: hyperlipidemia Gastrointestinal: reports: GERD Genitourinary: reports: dialysis Musculoskeletal: reports: chronic pain Neurological: reports: CVA, dementia Endocrine/Immune: reports: Diabetes, thyroid disorder - PRIOR SURGERIES/PROCEDURES Surgical/Procedure History: reports: orthopedic (extremity) (right elbow, left wrist) - PRIOR HOSPITALIZATIONS Prior Hospitalizations: reports: for other non-related - IMMUNIZATION STATUS Childhood Immunizations: See Nurse Assessment Flu Vaccine: See Nurse Assessment - FAMILY HISTORY Family History: reviewed, not pertinent Physical Exam-General - PHYSICAL EXAM-ADULT Initial Vital Signs Reviewed: Yes - CONSTITUTIONAL General Appearance: appears well, alert, slow to respond, other (dementia) - EYES Eyes: PERRL/EOMI, pink conjunctivae, conjuctival exudate - HEAD, EARS, NOSE, MOUTH & THROAT HENMT: normocephalic/atraumatic, moist mucous membranes - NECK Neck: non-tender, full range of motion - RESPIRATORY Respiratory: chest non-tender, lungs clear, normal breath sounds - CARDIOVASCULAR Cardiovascular: normal peripheral pulses, regular rate, rhythm, no edema, no gallop, no JVD - GASTROINTESTINAL (ABDOMEN) Abdominal Exam: normal bowel sounds, non tender, soft, no organomegaly, no pulsatile mass - LYMPHATIC Lymphatic: no adenopathy - MUSCULOSKELETAL Back Exam: normal inspection Extremity: normal range of motion, non-tender - SKIN Integumentary: normal color, normal turgor, warm/dry - NEUROLOGIC Neurologic: grossly normal - PSYCHIATRIC Psych/Mental Status: normal mood/affect Progress - PLAN OF CARE/RESULTS Progress/Plan/Lab Results: Vital Signs - 8 hr 04/30/17 03:57 Temperature 97.9 F Pulse Rate 95 H Respiratory Rate 20 Blood Pressure 235/109 O2 Sat by Pulse Oximetry 97 Orders Category Date Time Status CBC WITH ELECTRONIC DIFF [HEME] Stat Lab 04/30/17 05:06 Ordered COMPREHENSIVE METABOLIC PANEL [CHEM] Stat Lab 04/30/17 05:06 Ordered Result Diagrams: 04/30/17 04:25 04/30/17 04:25 - REASSESSMENT Reassessment #1 Time Reassessed: 09:34 (Received@ shift change, labs pending. At this time, pt says does not feel good, but only pain is a headache. BS are NL, abd soft, mild tender suprapubic and RLQ) - CT/MRI 1 CT Study: Abdomen, Pelvis Impression: Abnormal CT Results: diverticulosis, mod sized hiatal hernia, stable GB wall calcification, ques - CONSULTS/PCP/HOSPITALIST Notification #1 *Consult/PCP/Hospitalist*: Jacy Time Discussed: 11:47 (Will write all orders) Consult Disposition: Will see in ED, Admit - CHANGE OF SHIFT REPORT (ED Provider) Report Given and Care Transferred to:: Dr Walls Time of Transfer: 06:17 Items Pending: Labs Departure - Departure Date of Disposition Decision: 04/30/17 Time of Disposition Decision: 10:57 DIAGNOSIS: GI (gastrointestinal bleed) Qualifiers: GI bleed type/associated pathology: unspecified gastrointestinal hemorrhage type Qualified Code(s): K92.2 - Gastrointestinal hemorrhage, unspecified Disposition: ADMITTED INPATIENT Certified Medical Emergency: Emergent Condition: Good Referrals and Follow-Ups: Khai Obrien MD [Primary Care Provider] - - Critical Care Note This patient required my direct & personal management of CC.: No
[2017-04-30 05:28] LABS: BASO% 0.1 % (0.0-0.8); EOS% 1.3 % (0.0-10.0); HEMATOCRIT 34.4 % (37.0-47.0); HEMOGLOBIN 10.5 g/dL (12.0-16.0); IMM GRAN# 0.02 X1000 (0.0-0.04); IMM GRAN% 0.3 % (0.0-0.5); LYMPH# 1.12 X1000 (1.2-3.4); LYMPH% 14.3 % (20.5-51.1); MCH 25.1 PG (27-31); MCHC 30.5 g/dL (33-37); MCV 82.1 FL (81-99); MONO# 0.56 X1000 (0.11-0.59); MONO% 7.2 % (1.7-9.3); MPV 11.3 FL (7.4-10.4); NEUT% 76.8 % (42.2-75.2); PLT 288 X1000 (130-400); RBC 4.19 XMIL (4.2-5.4)
[2017-04-30 06:01] LABS: AGAP 10; ALBUMIN 2.8 g/dL (3.5-5.0); ALKALINE PHOSPHATASE 102 U/L (32-104); BUN 18 mg/dL (8-22); CALCIUM 8.5 mg/dL (8.8-10.2); CHLORIDE 100 mmol/L (98-107); COSMO 292; GOT 9 U/L (10-30); GPT 6 U/L (10-36); POTASSIUM 4.9 mmol/L (3.5-5.1); SODIUM 139 mmol/L (136-145); TCO2 29 mmol/L (25-35); TOTAL BILIRUBIN 0.26 mg/dL (0.20-1.00); TOTAL PROTEIN 5.8 g/dL (6.3-8.3)
[2017-04-30] MEDS ORDERED: HUMULIN R SUBQ ONE (06:14)
--- NOTE | 2017-04-30 10:47 | Diag Imaging Result Doc PS360 ---
EXAM: CT ABD/PELVIS W/ IV CONT ONLY INDICATION: some say black stool, others say black vomit COMPARISON: 03/16/2017 FINDINGS: The spleen appears marginally larger than it did on the previous study. However, it is still within normal limits for size. There is a small low dense splenic lesion anteriorly that probably represents a small splenic cyst. There is a partially calcified stone or, perhaps more likely, gallbladder wall calcifications that are stable. Note that gallbladder wall calcifications are associated with an increased risk of gallbladder carcinoma. The gallbladder is unremarkable, otherwise. There are few small renal hypodensities bilaterally that are too small to accurately characterize but probably represent tiny cysts. There is a moderate-sized hiatal hernia that is stable. The uterus is heterogeneous, nodular, and contains coarse calcifications. This is most compatible with a fibroid uterus. There is diverticulosis coli. However, there is no evidence of diverticulitis. There is no evidence of bowel obstruction. No focal inflammatory changes, free abdominal gas, or free fluid is appreciated. There are small bilateral inguinal hernias containing only fat, stable. The remainder of the solid viscera of the abdomen and pelvis and the remainder of the GI tract are essentially unremarkable. IMPRESSION: 1.Uncomplicated diverticulosis coli. 2.Stable moderate-sized hiatal hernia. 3.Stable gallbladder wall calcifications. 4.Questionable slight increase in size of the spleen as compared to the previous study. This could also be a technical phenomenon related to differences in slice registration. 5.Other incidental/nonacute findings detailed above. Electronically signed by Librado Chan 04/30/2017 10:44 AM
[2017-04-30] MEDS: SODIUM CHLORIDE 0.9% INJ SCH (13:46)
[2017-04-30] MEDS: INDERAL PO SCH ×2 (13:46→21:00)
[2017-04-30] MEDS: PROTONIX IV SCH (13:46)
[2017-04-30] MEDS: NS 1,000 ML IV SCH (13:46)
--- NOTE | 2017-04-30 15:14 | HISTORY AND PHYSICAL ---
CHIEF COMPLAINT: Abdominal pain, nausea, vomiting, hematemesis. HISTORY OF PRESENT ILLNESS: Mrs. Arroyo is a 71-year-old female with a history of morbid obesity, hypertension, bipolar who was recently discharged from our service for GI bleeding last month. Apparently symptoms are similar today to those about a month ago. Last month she presented with coffee-ground emesis, she was seen by Dr. Brown and the plan was to schedule her for outpatient EGD. Unfortunately that never happened and the patient returns today with coffee- ground emesis, abdominal pain, nausea, vomiting. Abdominal pain is in the right upper quadrant and is constant made worse with palpation. Emesis began at around 3 a.m. In the ER she had labs and diagnostics done. Her hemoglobin,hematocrit was noted to be 10.5 and 34.4 which is actually significantly improved from last month and she is a little bit hyperglycemic but otherwise stable. A CT of the abdomen and pelvis did not show anything acute. She is now going to be admitted for further treatment and evaluation. PAST MEDICAL HISTORY: 1. Morbid obesity. 2. Diabetes mellitus. 3. Known upper GI bleeding. 4. Mild dementia. 5. Diabetes mellitus. 6. Hyperthyroidism. 7. Limited mobility. 8. Folic acid deficiency. PAST SURGICAL HISTORY: Tubal ligation, left wrist and right elbow surgery. SOCIAL HISTORY: No history of tobacco, alcohol or drug use. She currently resides at [facility]. FAMILY HISTORY: Noncontributory. REVIEW OF SYSTEMS: Fourteen-point review of systems obtained and found to be negative with the exception of the HPI. HOME MEDICATIONS: Tylenol 650 mg daily as needed for pain or fever, Antelmo powder pack 1 b.i.d., aspirin 81 mg a.m., vitamin B12 1000 mcg daily, Pepcid 20 mg daily, folic acid 1 mg daily, Lasix 40 mg daily, Icar-C 1 tab daily, Lantus 47 units subcu daily, Linzess 145 mcg p.o. daily, lisinopril 20 mg p.o. daily, Tapazole 5 mg b.i.d., MiraLAX 17 g daily, Inderal 10 mg t.i.d., Ultram 50 mg p.o. as needed for pain. ALLERGIES: Penicillin. PHYSICAL EXAMINATION: VITAL SIGNS: Blood pressure is 172/86, heart rate 96, respiratory 18, O2 saturation 99% on room air. Temperature is 97.9 degrees. GENERAL: Morbidly obese female lying in hospital bed in no acute distress. NEUROLOGIC: The patient is awake, alert, and oriented. She follows commands without focal deficits. HEENT: Head is atraumatic and normocephalic. Her pupils are equal, round, reactive to light. Oral mucosa is moist. Trachea is midline. There is no JVD or carotid bruits. CHEST: Clear to auscultation bilaterally. CV: Regular. S1-S2 is noted. No murmurs. GI: Right upper quadrant tenderness to palpation. Belly soft, nondistended, bowel sounds are hypoactive. EXTREMITIES: 1+ edema bilaterally, diminished pulses palpable. DIAGNOSTIC DATA: WBC 7.81, hemoglobin 10.5, hematocrit 34.4, platelet count 288,000. Sodium 139, potassium 4.9, chloride 100, CO2 29, anion gap 10, BUN 18, creatinine 0.6 , glucose 325, calcium 8.5, bilirubin 0.26, AST 9, ALT 6, alkaline phosphatase 102, albumin 2.8. ASSESSMENT/PLAN: 1. Upper gastrointestinal bleed: Will admit to the floor with telemetry. Will start light IV fluids and b.i.d. IV Protonix. Will consult Dr. Brown. Will trend her hematocrits hemoglobin and keep her NPO for now. 2. Anemia: Likely multifactorial to include blood loss and multiple mineral deficiencies. Will monitor hemoglobin and hematocrit closely, as stated in HPI it is actually almost 2 points better today than it was last month. 3. Diabetes mellitus: Will hold her insulin while she is n.p.o., put her on sliding scale and pattern blood sugars. 4. Hyperthyroidism: Continue her Tapazole and Inderal. 5. Deep vein thrombosis prophylaxis will be provided with TERRANCE SANDOVAL. Further recommendations to follow. Dictated by FREDRICK Dewey for Óscar Louie MD cc: FREDRICK Dewey Addendum: I personally evaluated and examined the patient in conjunction with the MOTOR RACER and agreed with his assessment and plans. My exam revealed mild epigastric tenderness MTDD
[2017-04-30] MEDS: HUMALOG SUBQ SCH ×2 (17:42→20:29)
[2017-04-30] MEDS: CARAFATE LIQUID PO SCH ×2 (17:42→21:00)
--- NOTE | 2017-04-30 18:17 | CONSULTATION ---
DATE OF CONSULTATION: 04/30/2017 PRIMARY CARE PROVIDER: Dr. Librado Spencer M.D. PRIMARY HOSPITALIST: Dr. Óscar Corona M.D. PRIMARY ESCROW SECRETARY: Dr. Cam Hodges M.D. INDICATION FOR CONSULTATION: 1. Hematemesis. 2. Nausea with vomiting. 3. Abdominal pain. HISTORY OF PRESENT ILLNESS: Patient is a 71-year-old white female with diabetes mellitus 2, GERD, hypertension, bipolar disorder. She was admitted initially from [facility] on 03/11/2017 with hematemesis of coffee-ground material. During that admission, she had severe abdominal pain and was thought to possibly have a small bowel obstruction. She was treated conservatively with medical management. She was subsequently found to have a normal gastric emptying study during that admission, and was scheduled to undergo an inpatient EGD as the emptying study did not account for her nausea with vomiting. She was scheduled to undergo an EGD on 03/17/2017 during the admission however, family was unavailable to provide consent and the patient has dementia. She was discharged to [facility] on 03/18/2017 with plans to perform the EGD as an outpatient once consent could be obtained. Unfortunately, the endoscopy was not performed. She returns with coffee-grounds emesis and is admitted for further evaluation. She reports the acute onset of coffee-grounds emesis, nausea with vomiting and abdominal pain that began at 3 a.m. this morning. She describes the pain as a severe sharp pain in the epigastric and right upper quadrant. It is worse with deep palpation. She had emesis prior to admission but none since admission. We are asked to participate in her care. Her primary industrial engineering professor is Dr. Cam Brown M.D. PAST MEDICAL HISTORY: 1. Recurrent nausea with vomiting. 2. GERD. 3. Hypothyroidism. 4. Morbid obesity. 5. Constipation. 6. Diabetes mellitus. 7. Small bowel obstruction. 8. Hypertension. 9. Bipolar disorder. 10. Dementia. 11. Folic acid deficiency. 12. Upper GI bleeding. 13. Chronic constipation. PAST SURGICAL HISTORY: 1. Tubal ligation. 2. Left wrist surgery. 3. Right elbow surgery. SOCIAL HISTORY: Negative for alcohol, tobacco or recreational drug use. She currently resides in [facility]. FAMILY HISTORY: Is difficult to obtain. The patient answers simple questions but is not certain of her family history. REVIEW OF SYSTEMS: Negative except for the nausea with vomiting, epigastric to right upper quadrant pain and hematemesis. She does have a history of chronic constipation but denies difficulty. MEDICATION ALLERGIES: Penicillin. HOME MEDICATIONS: 1. Tylenol. 2. Antelmo powder. 3. Vitamin B12. 4. Pepcid. 5. Folic acid. 6. Lasix. 7. Lantus. 8. Linzess. 9. Lisinopril. 10. Tapazole. 11. MiraLAX. 12. Inderal. 13. Ultram. On exam, she is in no acute distress. Her blood pressure is 148/72, pulse of 89 , respiration 20, temp of 98.4 degrees.HEENT: Negative for jaundice. Her oropharyngeal mucosa membranes slightly dry. Her dentition is poor. Pulmonary Exam: Lungs are clear to auscultation with normal expiratory effort. Cardiovascular Examination: Reveals regular rate and rhythm with no gallops or rubs. Abdominal Exam: Reveals right upper quadrant tenderness but no rebound or guarding. She has hypoactive bowel sounds. Extremities: Bilaterally are remarkable for 1 + edema with decreased pulses. OBJECTIVE DATA: Reveals a hemoglobin of 10.5 with hematocrit of 34.4, and a white count 7.81. She has 288,000 platelets. Sodium is 139, potassium 4.9, chloride 100, CO2 29, BUN 18, creatinine 0.6 with a glucose of 325. Calcium is 8.5, total bilirubin 0.26, AST 9, ALT 6, alkaline phosphatase 102, total protein 5.8, and albumin 2.8. IMPRESSION: 1. Hematemesis. 2. Nausea with vomiting. 3. Abdominal pain. RECOMMENDATION: 1. Currently, the patient is receiving Protonix 40 mg IV q.12 hours with resolution of the nausea with vomiting. She has had no further bouts of hematemesis since admission. I would continue Protonix 40 mg q.12 hours. However, if she has recurrence of nausea with vomiting, I would transition this to a Protonix drip. 2. I will add Carafate suspension 1 g p.o. 4 times a day. She would benefit from this for 12 week course of therapy. 3. I will defer to Dr. Cam Brown regarding possible EGD next week. He will return on Tuesday to assume care. cc: MD Librado Millard MD Manish Arora, MD Andrew Wynn Murkett, MD MTDD
[2017-04-30] MEDS: TAPAZOLE PO SCH (21:00)
[2017-05-01] MEDS: CARAFATE LIQUID PO SCH ×4 (01:07→21:50)
[2017-05-01] MEDS: PROTONIX IV SCH ×2 (01:07→13:39)
[2017-05-01] MEDS: NS 1,000 ML IV SCH ×3 (06:14→21:50)
[2017-05-01] MEDS: HUMALOG SUBQ SCH ×4 (06:14→21:51)
[2017-05-01 06:17] LABS: HEMATOCRIT 30.6 % (37.0-47.0); HEMOGLOBIN 9.1 g/dL (12.0-16.0); MCH 25.3 PG (27-31); MCHC 29.7 g/dL (33-37); MPV 10.5 FL (7.4-10.4); RBC 3.6 XMIL (4.2-5.4)
[2017-05-01 07:14] LABS: AGAP 9; BUN 11 mg/dL (8-22); CALCIUM 8.5 mg/dL (8.8-10.2); CHLORIDE 107 mmol/L (98-107); COSMO 285; POTASSIUM 4.1 mmol/L (3.5-5.1); SODIUM 142 mmol/L (136-145); TCO2 26 mmol/L (25-35)
--- NOTE | 2017-05-01 09:34 | PROGRESS NOTE ---
DATE: 05/01/2017 SUBJECTIVE: The patient is feeling a little better today. No vomiting overnight. No vomiting since admission. No fever. No chills. No nausea, vomiting, or diarrhea. OBJECTIVE: Vital Signs: Blood pressure 149/57, pulse of 67, respirations 16, temperature of 98.2 degrees, saturation 100% on room air. General Appearance: Well-developed, well-nourished, white female in no acute distress. HEENT: Anicteric sclerae. Clear conjunctivae. Neck: Supple. No JVD. No bruits. With very poor dentition. Cardiovascular: S1 and S2. Normal rate and rhythm. No murmur, rubs, or gallops. Pulmonary: Clear to auscultation bilaterally. GI: Soft, nontender, nondistended. Normoactive bowel sounds. Musculoskeletal: No clubbing, cyanosis, or edema. Laboratory Data: White count today 5.37, hemoglobin 9.1, hematocrit of 30.6, platelets of 246,000. Chemistry: Sodium 142, potassium 4.1, chloride 107, bicarb 26, BUN 11, creatinine 0.6, glucose of 147. ASSESSMENT AND PLAN: This is a 71[facility]year-[facility] admitted to the hospital for hematemesis. 1. Hematemesis. Her hemoglobin and hematocrit dropped a little, probably due to dilution. No recurrent hematemesis. The patient is on Protonix twice a day intravenously. GI was consulted Dr. Brown to scope on Tuesday. Start the patient on a clear liquid diet for now. We will keep her nothing per oral after midnight in case they want to do the procedure tomorrow. We will monitor her hemoglobin and hematocrit. 2. Diabetes type 2. We will continue sliding scale insulin. 3. History of hypothyroidism. We will continue Tapazole and Inderal. 4. Deep vein thrombosis prophylaxis. The patient is on sequential compression devices. 5. We will continue to monitor her hemoglobin and hematocrit. We will keep the patient in-house for now.
[2017-05-01] MEDS: INDERAL PO SCH ×3 (10:17→21:50)
[2017-05-01] MEDS: TAPAZOLE PO SCH ×2 (10:18→21:50)
[2017-05-01] MEDS ORDERED: CALMOSEPTINE OINTMENT TOP PRN (10:26)
[2017-05-01] MEDS: TYLENOL PO PRN ×2 (11:34→18:19)
[2017-05-01] MEDS: SODIUM CHLORIDE 0.9% INJ SCH (13:39)
--- NOTE | 2017-05-01 17:17 | PROGRESS NOTE ---
DATE: 05/01/2017 The patient reports interval resolution of the nausea with vomiting since she was placed on a Protonix drip and Carafate. She awaits an EGD tomorrow by Dr. Brown. She will be NPO after midnight. cc: Óscar Louie MD
[2017-05-02] MEDS: PROTONIX IV SCH ×2 (01:34→13:46)
[2017-05-02] MEDS: CARAFATE LIQUID PO SCH ×4 (02:27→21:47)
[2017-05-02] MEDS: NS 1,000 ML IV SCH ×2 (06:26→18:01)
[2017-05-02] MEDS: HUMALOG SUBQ SCH ×4 (06:28→22:53)
[2017-05-02 06:29] LABS: HEMATOCRIT 28.7 % (37.0-47.0); HEMOGLOBIN 8.7 g/dL (12.0-16.0); MCH 25.7 PG (27-31); MCHC 30.3 g/dL (33-37); MCV 84.7 FL (81-99); MPV 10.9 FL (7.4-10.4); RBC 3.39 XMIL (4.2-5.4)
[2017-05-02 07:11] LABS: AGAP 10; BUN 7 mg/dL (8-22); CALCIUM 8.3 mg/dL (8.8-10.2); CHLORIDE 108 mmol/L (98-107); COSMO 282; POTASSIUM 3.7 mmol/L (3.5-5.1); SODIUM 141 mmol/L (136-145); TCO2 23 mmol/L (25-35)
[2017-05-02 09:00] LABS: INR 1.02; PROTIME 10.7 Seconds (9.2-11.7); PTT 24.1 Seconds (22.0-36.0)
[2017-05-02] MEDS: INDERAL PO SCH ×3 (09:05→21:47)
[2017-05-02] MEDS: TAPAZOLE PO SCH ×2 (09:05→21:47)
--- NOTE | 2017-05-02 11:17 | PROGRESS NOTE ---
DATE: 05/02/2017 SUBJECTIVE: Patient is currently resting in bed. She denies any nausea, vomiting, vomiting blood, or passing blood in the stools. She moved her bowels this morning which was brownish and liquid in color. She did get admitted on 04/30/2017 with complaints of nausea, vomiting, abdominal pain, and coffee-grounds emesis. After starting her on PPIs and Carafate, those symptoms resolved. In the past, she did have symptoms of gastric distention which was thought to be gastric outlet obstruction but on her past admission, we were unable to do EGD at that time. She lives in [place] so she was not able to follow up as an outpatient. PHYSICAL EXAMINATION: Vital Signs: Temperature of 98.4 degrees, pulse of 63, respiratory rate 16, blood pressure 154/69, saturating 94% on room air. Body weight of 193 pounds, BMI of 32.1 kg. General Appearance: Obese. Lying in bed, in no acute distress. HEENT: Pale conjunctivae. No icterus. Neck: Supple. Abdomen: Obese, soft, nontender, nondistended. Bowel sounds present. No guarding. No rebound. Extremities: No cyanosis and clubbing. Bilateral lower extremity edema noted. Noted bilateral lower extremity arthritis. Neurological: She is alert and answers questions. LABS: Hemoglobin and hematocrit are 8.7 and 28.7, white count of 4.3, platelet count of 225,000, MCV of 84.7. INR 1, PTT of 10.7, PTT of 24.1. Sodium 140, potassium 3.7, chloride 100, bicarb 23, anion gap 10, BUN of 7, creatinine 0.5, glucose of 160, calcium is 8.3, magnesium is 1.7. AST 9, ALT 6, alkaline phosphatase is 102, total protein 5.8, albumin of 2.8, total bilirubin is 0.26. Stool for occult blood was positive. According to the records, she had an EGD on 02/11/[address] Moreland which showed evidence of esophageal stricture, peptic stricture, esophagitis, and hiatal hernia. She was started on PPIs. She also had a colonoscopy done 2014 which showed diverticulosis, poor prep. IMPRESSION AND PLAN: 1. Coffee-grounds emesis, anemia. In this regard, we will continue patient on proton pump inhibitor. We will schedule patient for an EGD tomorrow with Dr. Macdonald. 2. Anemia. We will continue to watch. We will start patient on Iron-C twice a day. 3. Diverticulosis. She will avoid corn, nuts, and seeds in diet. Increase fiber intake 25-30 g. 4. History of constipation. In this regard, we will start her on MiraLAX twice daily as well as on Dulcolax at bedtime. 5. Obesity. The patient was counseled to lose weight. 6. Gastroesophageal reflux, life changes. 7. Gastrointestinal prophylaxis as above and bowel regimen as well. 8. The above plan was discussed with the patient and the nurse. Further recommendations to follow pending the above. cc: Cam Brown MD MTDD
--- NOTE | 2017-05-02 13:12 | PROGRESS NOTE ---
DATE: 05/02/2017 SUBJECTIVE: Patient reports feeling fine. No nausea. No vomiting. Patient reports 1 bowel movement that was brownish. OBJECTIVE: Vital Signs: Temperature 98.4 degrees, heart rate 63, respiratory rate 16, blood pressure 154/69, O2 saturation 95% on room air. General: This is a 71-year-old female lying in bed, in no acute distress. HEENT: Head is normocephalic, atraumatic. Anicteric sclerae and pale conjunctivae. Mucous membranes moist. Neck: Supple. No JVD noted. No carotid bruits. No lymphadenopathy. No thyromegaly. Cardiovascular: S1, S2 heard. No murmurs, gallops, or rubs. Regular rate and rhythm. Respiratory: Clear bilaterally to auscultation. No work of breathing or using accessory muscles. Abdomen: Soft. Nontender to palpation. Nondistended. Bowel sounds present. No organomegaly. Extremities: No clubbing, cyanosis, or edema. Peripheral pulses present in both legs. Neurological: Patient is alert and oriented x3. Moves 4 extremities. Cranial nerves 2 through 12 grossly normal. LABORATORY DATA: White cell count 4.34, hemoglobin 8.7, hematocrit 28.7, platelets 225,000. Sodium 141, potassium 3.7, chloride 108, bicarbonate 23, BUN 7, creatinine 0.5. ASSESSMENT AND PLAN: 1. Gastrointestinal bleeding. The patient has been seen by GI and he has been scheduled for colonoscopy tomorrow morning. 2. Anemia. Right now the hemoglobin is stable. We are going to continue checking CBC daily and for now we are going to continue with iron C twice daily. 3. Diverticulosis, stable. The patient is recommended to increase fiber intake. 4. Obesity. Patient counseled to lose weight. 5. Diabetes type 2. Will continue with sliding scale insulin. 6. History of hyperthyroidism. Will continue with Tapazole and Inderal. 7. Deep vein thrombosis prophylaxis. Patient is on SCDs. cc: Deacon Tineo MD
[2017-05-02] MEDS: SODIUM CHLORIDE 0.9% INJ SCH (13:46)
[2017-05-02] MEDS: MIRALAX PO SCH ×2 (15:28→21:46)
[2017-05-02] MEDS: DULCOLAX PR SCH (21:47)
[2017-05-03] MEDS: CARAFATE LIQUID PO SCH ×4 (02:02→20:51)
[2017-05-03] MEDS: PROTONIX IV SCH ×2 (02:02→15:43)
[2017-05-03] MEDS: HUMALOG SUBQ SCH ×4 (06:15→20:53)
[2017-05-03] MEDS: NS 1,000 ML IV SCH (06:51)
[2017-05-03 06:58] LABS: HEMATOCRIT 27.1 % (37.0-47.0); HEMOGLOBIN 8.1 g/dL (12.0-16.0); MCH 25.2 PG (27-31); MCHC 29.9 g/dL (33-37); MCV 84.2 FL (81-99); MPV 11.4 FL (7.4-10.4); RBC 3.22 XMIL (4.2-5.4)
[2017-05-03 07:10] LABS: AGAP 11; BUN 3 mg/dL (8-22); CALCIUM 7.8 mg/dL (8.8-10.2); CHLORIDE 109 mmol/L (98-107); COSMO 285; POTASSIUM 3.7 mmol/L (3.5-5.1); SODIUM 143 mmol/L (136-145); TCO2 23 mmol/L (25-35)
--- NOTE | 2017-05-03 12:51 | PROGRESS NOTE ---
DATE: 05/03/2017 Patient reports feeling fine. No complaints today. OBJECTIVE: Vital Signs: Temperature 98.3 degrees, heart rate 67, respiratory rate 18, blood pressure 153/61, O2 saturation 100% on room air. General examination: This is a 71-year-old, female lying in bed, in no acute distress. HEENT: Head is normocephalic, atraumatic. Anicteric sclerae and pale conjunctivae. Mucous membranes moist. Neck: Supple. No JVD noted. No carotid bruits. No lymphadenopathy. No thyromegaly. Cardiovascular: S1, S2 heard. No murmurs, gallops, or rubs. Regular rate and rhythm. Respiratory: Clear bilaterally to auscultation. No work of breathing or using accessory muscles. Abdomen: Soft, nontender to palpation. Bowel sounds present. No organomegaly. Extremities: No clubbing, cyanosis, or edema. Peripheral pulses present in both legs. Neurological: Patient alert and oriented x3. Moves 4 extremities. LABORATORY DATA: White cell count 4.34, hemoglobin 8.7, hematocrit 28.7. The hemoglobin is 8.1 in comparing with 8.7 yesterday. BMP is completely normal. ASSESSMENT AND PLAN: 1. Gastrointestinal bleeding. The patient is going to an upper endoscopy today and also apparently a colonoscopy so we will see what those exams show. 2. Anemia chronic disease. Hemoglobin has dropped a little bit from 8.7-8.1. We are going to continue checking CBC daily. Patient is receiving iron C capsules twice daily. 3. Diverticulosis stable. 4. Morbid obesity. Patient counseled to lose weight. 5. Diabetes mellitus type 2. Patient currently is on sliding scale insulin. We will continue with same management. 6. History of hyperthyroidism. Will continue with Tapazole and also Inderal. 7. Deep vein thrombosis prophylaxis with SCDs. cc: Deacon Tineo MD
[2017-05-03] MEDS ORDERED: DIPRIVAN 1% ONE (13:27)
--- NOTE | 2017-05-03 14:13 | OPERATIVE NOTE ---
PROCEDURE DATE: 05/03/2017 DATE OF SURGERY: 05/03/2017. PROCEDURE: Esophagogastroduodenoscopy. PREOPERATIVE DIAGNOSIS: Hematemesis. POSTOPERATIVE DIAGNOSES: 1. Severe ulcerative esophagitis with friability and oozing. 2. Hiatal hernia. DESCRIPTION OF PROCEDURE IN DETAIL: After informed consent, adequate intravenous sedation and the scope was introduced to the esophagus. Patient has severe ulcerative esophagitis grade 3 and oozing. There is also esophageal stricture. Stomach itself and duodenum normal without any blood. The scope was withdrawn. The patient tolerated the procedure well without any complications. RECOMMENDATION: Intensive anti reflux measures. cc: Stephania Macdonald MD
[2017-05-03] MEDS ORDERED: XYLOCAINE-MPF 2% ONE (14:37)
[2017-05-03] MEDS: TAPAZOLE PO SCH ×2 (15:27→20:51)
[2017-05-03] MEDS: INDERAL PO SCH ×4 (15:29→20:51)
[2017-05-03] MEDS: MIRALAX PO SCH ×2 (15:30→20:50)
[2017-05-03] MEDS: SODIUM CHLORIDE 0.9% INJ SCH (15:43)
[2017-05-03] MEDS: TYLENOL PO PRN (20:52)
[2017-05-03] MEDS: DULCOLAX PR SCH (20:55)
[2017-05-04] MEDS: NS 1,000 ML IV SCH ×2 (01:29→14:42)
[2017-05-04] MEDS: CARAFATE LIQUID PO SCH ×3 (01:30→14:03)
[2017-05-04] MEDS: SODIUM CHLORIDE 0.9% INJ SCH ×2 (01:30→14:02)
[2017-05-04] MEDS: PROTONIX IV SCH ×2 (01:30→14:02)
[2017-05-04] MEDS: HUMALOG SUBQ SCH ×2 (06:10→10:53)
[2017-05-04] MEDS: MIRALAX PO SCH (08:37)
[2017-05-04] MEDS: TAPAZOLE PO SCH (08:37)
[2017-05-04] MEDS: INDERAL PO SCH ×2 (08:50→14:03)
--- NOTE | 2017-05-04 12:58 | DISCHARGE SUMMARY ---
ADMISSION DATE: 04/30/2017 DISCHARGE DATE: 05/04/2017 DISCHARGE DIAGNOSES: 1. Severe esophagitis. 2. Anemia of chronic disease. 3. Diabetes mellitus, type 2 with hyperglycemia. 4. Hypothyroidism. 5. Deep vein thrombosis prophylaxis. CONSULTATION: Dr. Malena Barrios from GI. PROCEDURES: 1. Abdomen and pelvis CT showed uncomplicated diverticulosis. Stable moderate size hiatal hernia. Stable gallbladder wall calcification and questionable slight increase in size of the spleen as compared with previous study. 2. Upper endoscopy shows severe ulcerative esophagitis, grade 3, with oozing with esophageal stricture. Duodenum was normal. HOSPITAL COURSE: This is a 71-year-old, female, with history of morbid obesity, hypertension, bipolar disorder who was recently discharged from our service for GI bleeding. Apparently, the symptoms are similar to those about a month ago. Last month, she presented with coffee-grounds emesis, and she was seen by Dr. Brown at that time. The plan was apparently to schedule the patient for an EGD. Unfortunately, that never happened. The patient returns today with coffee ground emesis, abdominal pain, nausea and vomiting. In the ER, labs and diagnostics done. Hematocrit was 10.5, which is definitely much improved. Because of these, a previous history of possible bleeding, we decided to consult GI who finally performed an EGD with results as above. The patient's hemoglobin has been stable and no vomiting blood. Feeling good. So, she is going to be discharged in stable condition. DISCHARGE PHYSICAL EXAMINATION: Vital signs: Temperature 98 degrees, heart rate 61, respiratory 148/81. O2 saturation 97% on room air. General: This is a 71-year-old, female lying in bed, in no acute distress. HEENT: Head is normocephalic and atraumatic. Anicteric sclerae and pale conjunctivae. Mucous membranes moist. Neck: Supple. No JVD noted. No carotid bruits. No lymphadenopathy. No thyromegaly. Cardiovascular: S1 S2 heard. No murmurs, gallops, or rubs. Regular rate and rhythm. Respiratory: Clear bilaterally to auscultation. No work of breathing or using accessory muscles. Abdomen: Soft, nontender to palpation. Bowel sounds present. No organomegaly. Extremities: No clubbing, cyanosis, or edema. Peripheral pulses present in both legs. The patient moves 4 extremities. Alert and oriented x3. DISCHARGE DISPOSITION: The patient is going back to [facility] where she actually lives. DISCHARGE MEDICATIONS: 1. Protonix 40 mg 1 tablet p.o. daily for 3 months. 2. Sucralfate 1 g p.o. q.6 hours for 1 month. 3. Lisinopril 20 mg 1 tablet p.o. daily. 4. Linaclotide 145 mcg p.o. daily. 5. Lantus 40 units subcutaneous at bedtime and 3 subcutaneous in a.m. 6. Icar-C capsule 1 tablet p.o. daily. 7. Folic acid 1 tablet p.o. daily. 8. MiraLAX 1 pack p.o. daily. 9. Propranolol 10 mg 1 tablet p.o. 3 times per day. 10. Vitamin B12 1 g p.o. daily. 11. Furosemide 4 mg, 1 tablet p.o. daily. FOLLOWUP: Follow up with Dr. Stephania Macdonald in 4-6 weeks. cc: Deacon Tineo MD
[2017-05-04 13:57] VITALS: BP 140/85
== END 2017-05-04 15:32 ==
LOC: ED 03:38 → SUPCPDRO 12:19 → SUATTDRO 12:19 → 4N 12:19
PROVIDERS: ATTEND Internal Medicine

== ENCOUNTER 2019-03-03 18:12 | Inpatient (IN) ==
[2019-03-03] MEDS ORDERED: NS 1,000 ML IV ONE (18:36)
[2019-03-03] MEDS ORDERED: SODIUM CHLORIDE 0.9% INJ ONE (18:37)
[2019-03-03] MEDS ORDERED: PROTONIX IV ONE (18:37)
[2019-03-03 18:58] LABS: BASO# 0.01 X1000 (0.0-0.2); BASO% 0.1 % (0.0-0.8); EOS# 0.14 X1000 (0.0-0.7); EOS% 1.1 % (0.0-10.0); HEMATOCRIT 35.8 % (37.0-47.0); HEMOGLOBIN 11.1 g/dL (12.0-16.0); IMM GRAN# 0.11 X1000 (0.0-0.04); IMM GRAN% 0.8 % (0.0-0.5); LYMPH# 1.22 X1000 (1.2-3.4); LYMPH% 9.2 % (20.5-51.1); MCH 26.6 PG (27-31); MCV 85.9 FL (81-99); MPV 11.9 FL (7.4-10.4); NEUT# 10.58 X1000 (1.4-6.5); NEUT% 79.8 % (42.2-75.2); PLT 184 X1000 (130-400); RBC 4.17 XMIL (4.2-5.4); RDW 14.2 % (11.5-14.5); WBC 13.26 X1000 (4.8-10.8)
[2019-03-03 19:08] LABS: INR 1.03; PROTIME 14.3 Seconds (11.0-16.0)
[2019-03-03 19:09] LABS: PTT 36.2 Seconds (22.3-41.8)
[2019-03-03 19:19] LABS: ESTIMATED GFR > 60
--- NOTE | 2019-03-03 19:23 | PROVIDER DOCUMENTATION ---
HPI-Abdominal Pain/GI Problem - General Chief Complaint: GI Bleed Stated Complaint: GI BLEED Time Seen by Provider: 03/03/19 18:20 Source: patient, EMS Allergies/Adverse Reactions: Patient Allergies Allergy/AdvReac Type Severity Reaction Status Date / Time Penicillins Allergy Severe ANAPHYLAXIS Verified 09/15/17 00:40 Home Medications: Home Medication List Medication Instructions Recorded Confirmed Last Taken Type Linaclotide [Linzess] 145 mcg PO DIRECTED 03/11/17 10/16/18 04/29/17 History Lisinopril 20 mg PO QAM 03/11/17 10/17/18 04/29/17 History Furosemide [Lasix] 1 tab PO DAILY 04/30/17 10/17/18 04/29/17 History Methimazole 10 mg PO DAILY 11/01/17 10/17/18 Unknown History Cyanocobalamin [Vitamin B-12] 1,000 microgm PO DAILY 10/17/18 10/17/18 Unknown History Folic Acid 1 mg PO DAILY 10/17/18 10/17/18 Unknown History Iron Carbonyl/Ascorbic Acid 1 each PO QAM 10/17/18 10/17/18 Unknown History [Icar-C] Pantoprazole [Protonix] 40 mg PO DAILY@0700 10/17/18 10/17/18 Unknown History Polyethylene Glycol 3350 [Miralax] 17 gm PO DAILY 10/17/18 10/17/18 Unknown History Sucralfate [Carafate Liquid] 1 gm PO Q6HR 10/17/18 10/17/18 Unknown History Cyanocobalamin [Vitamin B-12] 500 microgm PO DAILY tablet 11/09/18 Unknown Rx Dextrose [Insta-Glucose] 31 gm PO PRN PRN tube 11/09/18 Unknown Rx Duloxetine [Cymbalta] 30 mg PO DAILY #30 cap 11/09/18 Unknown Rx Ergocalciferol (Vitamin D2) 50,000 unit PO Q7D #4 cap 11/09/18 Unknown Rx [Vitamin D] Insulin Glargine [Lantus] 35 units SUBQ QHS 30 Days #1 11/09/18 Unknown Rx insuln.pen Mirtazapine [Remeron] 15 mg PO QHS #30 tab 11/09/18 Unknown Rx Propranolol [Inderal] 10 mg PO TID #45 tab 11/09/18 Unknown Rx Risperidone [Risperdal] 0.5 mg PO 0700,1200 #60 tab 11/09/18 Unknown Rx Risperidone [Risperdal] 3 mg PO QHS #30 tab 11/09/18 Unknown Rx Trazodone [Desyrel] 50 mg PO QHS #30 tab 11/09/18 Unknown Rx Valproic Acid [Depakene Liquid] 500 mg PO QHS #310 udc 11/09/18 Unknown Rx - History of Present Illness-ABD Nature of Presenting Problems: brought in by ems from [facility] for GIB. history of GIB in the past. pt is poor historian unable to get ful lhistory. pt is alert and oriented to the name and place at bedside Review of Systems - Adult - REVIEW OF SYSTEMS - ADULT Constitutional: reports: no symptoms reported Eyes: reports: no symptoms reported Ears, Nose, Mouth & Throat: reports: no symptoms reported Cardiovascular: reports: no symptoms reported Respiratory: reports: no symptoms reported Gastrointestinal: reports: no symptoms reported Genitourinary: reports: no symptoms reported Musculoskeletal: reports: no symptoms reported Integumentary: reports: no symptoms reported Neurological: reports: no symptoms reported Psychiatric: reports: no symptoms reported Endocrine: reports: no symptoms reported Hematologic/Lymphatic: reports: no symptoms reported Allergic/Immunologic: reports: no symptoms reported All Other Systems: Reviewed and Negative Past History - Adult - PAST MEDICAL HISTORY-ADULT Review of Records: reports: Old Records Reviewed, Nursing Assessment Review, Medications Reviewed, Social history reviewed & non-contributory. Major Childhood Illnesses: reports: denies history Cardiovascular: reports: hyperlipidemia Respiratory: reports: denies history Gastrointestinal: reports: GERD Obstetrical/Gynecological: reports: denies history Genitourinary: reports: dialysis Musculoskeletal: reports: chronic pain Neurological: reports: CVA, dementia Endocrine/Immune: reports: Diabetes, thyroid disorder Other Conditions: reports: denies history - PRIOR SURGERIES/PROCEDURES Surgical/Procedure History: reports: orthopedic (extremity) (right elbow, left wrist) - PRIOR HOSPITALIZATIONS Prior Hospitalizations: reports: for other non-related - IMMUNIZATION STATUS Childhood Immunizations: See Nurse Assessment Flu Vaccine: See Nurse Assessment - FAMILY HISTORY Family History: reviewed, not pertinent - SOCIAL HISTORY Smoking: non-smoker Substance Use: none/never Alcohol Use Frequency: never Living Situation: care facility Physical Exam-General - PHYSICAL EXAM-ADULT Initial Vital Signs Reviewed: Yes - CONSTITUTIONAL General Appearance: appears well, alert, no apparent distress, obese - EYES Eyes: PERRL/EOMI, pink conjunctivae - HEAD, EARS, NOSE, MOUTH & THROAT HENMT: normocephalic/atraumatic, moist mucous membranes - NECK Neck: non-tender, full range of motion - RESPIRATORY Respiratory: chest non-tender, lungs clear, normal breath sounds - CARDIOVASCULAR Cardiovascular: normal peripheral pulses, tachycardia - GASTROINTESTINAL (ABDOMEN) Abdominal Exam: normal bowel sounds, non tender, soft - MUSCULOSKELETAL Back Exam: normal inspection, no CVA tenderness, no vertebral tenderness Extremity: normal range of motion, non-tender, no pedal edema Peripheral Pulses: radial (R): 2+, radial (L): 2+, dorsalis-pedis (R): 2+, dorsalis-pedis (L): 2+ - SKIN Integumentary: normal color, normal turgor, warm/dry - NEUROLOGIC Neurologic: grossly normal - PSYCHIATRIC Psych/Mental Status: oriented x 3 Progress - PLAN OF CARE/RESULTS Progress/Plan/Lab Results: Laboratory Results - last 24 hr 03/03/19 18:45 WBC 13.26 H RBC 4.17 L Hgb 11.1 L Hct 35.8 L MCV 85.9 MCH 26.6 L MCHC 31.0 L RDW Std Deviation 14.2 Plt Count 184 MPV 11.9 H Immature Gran % (Auto) 0.8 H Neut % (Auto) 79.8 H Lymph % (Auto) 9.2 L Cole % (Auto) 9.0 Eos % (Auto) 1.1 Baso % (Auto) 0.1 Immature Gran # (Auto) 0.11 H Neut # (Auto) 10.58 H Lymph # (Auto) 1.22 Cole # (Auto) 1.20 H Eos # (Auto) 0.14 Baso # (Auto) 0.01 Orders Category Date Time Status CBC WITH ELECTRONIC DIFF [HEME] Stat Lab 03/03/19 18:45 Completed COMPREHENSIVE METABOLIC PANEL [CHEM] Stat Lab 03/03/19 18:45 Received OCCULT BLOOD NON-FECES Stat Lab 03/03/19 18:38 Uncollected OCCULT BLOOD SCREENING [STOOL] Stat Lab 03/03/19 18:38 Uncollected PROTIME WITH INR [COAG] Stat Lab 03/03/19 18:45 Received PTT [COAG] Stat Lab 03/03/19 18:45 Received TYPE & SCREEN [BBK] Stat Lab 03/03/19 18:45 Results 0.9% Sodium Chloride Inj [Ns] 1,000 ml Med 03/03/19 18:36 Active IV 999 mls/hr Pantoprazole [Protonix] Med 03/03/19 18:37 Discontinued 80 mg IV NOW ONE Sodium Chloride 0.9% Med 03/03/19 18:37 Discontinued 10 ml INJ NOW ONE GI Bleed (possible) Stat Oth 03/03/19 18:36 Ordered Result Diagrams: 03/03/19 18:45 03/03/19 18:45 - CONSULTS/PCP/HOSPITALIST Notification #1 *Consult/PCP/Hospitalist*: dr. Cortez Time Discussed: 21:12 (GIB) Consult Disposition: Admit Departure - Departure Date of Disposition Decision: 03/03/19 Time of Disposition Decision: 21:12 DIAGNOSIS: GI (gastrointestinal bleed) Disposition: ADMITTED INPATIENT 09 Certified Medical Emergency: Emergent Condition: Stable Referrals and Follow-Ups: Khai Obrien MD [Primary Care Provider] - - Critical Care Note This patient required my direct & personal management of CC.: No Attestation - Physician/ JENNIFER Attestation The physician spent face to face time with patient:: Yes Advanced Practice Provider documentation review:: Supervising physician onsite and consulted in the evaluation and care of this patient. The physician did have a face to face encounter with the patient.
[2019-03-03 19:24] LABS: AGAP 13; ALB/GLOB RATIO 1.4; ALBUMIN 3.3 g/dL (3.5-5.0); ALKALINE PHOSPHATASE 87 U/L (32-104); BUN 57 mg/dL (8-22); CALCIUM 8.7 mg/dL (8.8-10.2); CHLORIDE 100 mmol/L (98-107); COSMO 308; CREATININE 0.9 mg/dL (0.5-0.9); GLUCOSE 337 mg/dL (70-104); GOT 7 U/L (10-30); GPT 8 U/L (10-36); POTASSIUM 4.5 mmol/L (3.5-5.1); SODIUM 140 mmol/L (136-145); TCO2 27 mmol/L (25-35); TOTAL BILIRUBIN 0.32 mg/dL (0.20-1.00); TOTAL PROTEIN 5.7 g/dL (6.3-8.3)
--- NOTE | 2019-03-03 22:38 | HISTORY AND PHYSICAL ---
PRIMARY CARE PHYSICIAN: Khai Obrien MD. CHIEF COMPLAINT: Coffee-grounds emesis. HISTORY OF PRESENTING ILLNESS: A 73-year-old obese female with a history of hypertension, hyperlipidemia, diabetes mellitus type 2, dementia, and schizophrenia, who was sent from [facility] due to patient having coffee-grounds emesis. The patient is a poor historian. Not much history could be obtained, and most of the history is obtained from records from the [facility] and the ER charting. At the time of my examination, the patient states that she was having some abdominal cramps and diarrhea and did not feel well. She was able to deny any fevers, chills, chest pain, shortness of breath. PAST MEDICAL HISTORY: Includes hypertension, hyperlipidemia, diabetes mellitus type 2, dementia, schizophrenia, obesity, and hyperthyroidism. PAST SURGICAL HISTORY: Left wrist and elbow surgery. ALLERGIES: Penicillin. CURRENT MEDICATIONS: Include B12 500 mcg p.o. daily, Cymbalta 30 mg p.o. daily, folic acid 1 mg p.o. daily, Lasix 40 mg p.o. daily, Lantus 35 units subcutaneous at bedtime, Linzess 145 mcg p.o. daily, lisinopril 20 mg p.o. q.a.m., methimazole 10 mg p.o. daily, Remeron 15 mg p.o. at bedtime, pantoprazole 40 mg p.o. daily, propranolol 10 mg p.o. t.i.d., risperidone 0.5 mg p.o. b.i.d. and 3 mg p.o. at bedtime, trazodone 50 mg p.o. at bedtime, valproic acid 500 mg p.o. at bedtime. SOCIAL HISTORY: No history of smoking, alcohol, or illicit drug use. She resides at [facility]. She has limited mobility. FAMILY HISTORY: No history of coronary disease. REVIEW OF SYSTEMS: Limited. PHYSICAL EXAMINATION: GENERAL: Cooperative, friendly, obese female. She is resting comfortably now. VITAL SIGNS: Temperature 98.5 degrees, pulse 105, respirations 29, blood pressure 98/69. HEENT: Atraumatic, normocephalic. Extraocular movements intact. PERRLA. NECK: No masses. CHEST: Clear to auscultation. CARDIOVASCULAR: Regular rate and rhythm. ABDOMEN: Soft, obese. Positive bowel sounds. EXTREMITIES: There is +2 edema. NEUROLOGIC: She is awake, alert, oriented x2. GENITOURINARY: No bladder distention. SKIN: Warm. LABORATORIES AND STUDIES: Sodium 140, potassium 4.5, chloride 100, CO2 is 27, BUN is 57, creatinine 0.9, glucose is 337. WBCs 13.26, hemoglobin 11.1, hematocrit 35.8, platelets 184,000. ASSESSMENT: This is a 73-year-old obese female with a history of hypertension, hyperlipidemia, diabetes mellitus type 2, dementia, and schizophrenia, who had presented to the emergency department from [facility] due to patient having diarrhea and coffee- grounds emesis. She was evaluated in the emergency department. Due to her presenting symptoms, she will need admission for further management. 1. Suspected upper gastrointestinal bleed. 2. Hypertension. 3. Diabetes mellitus type 2. 4. Dementia. PLAN: 1. We will admit patient to medical floor with telemetry. 2. Continue with IV fluids. 3. We will keep patient n.p.o. 4. Consult Gastroenterology. 5. Put patient on a PPI. 6. We will monitor blood pressure closely. 7. We will monitor blood glucose and put patient on sliding scale insulin regimen. 8. We will restart home medications. 9. Put patient on DVT prophylaxis with SCD. cc: MD Khai Salcedo MD
[2019-03-03] MEDS ORDERED: ZOFRAN IV PRN (22:45)
[2019-03-04] MEDS: NS 1,000 ML IV SCH ×3 (00:03→17:47)
[2019-03-04] MEDS: PROTONIX IV SCH ×3 (00:04→21:52)
[2019-03-04] MEDS: HUMULIN R SUBQ SCH ×4 (06:01→21:52)
[2019-03-04 06:33] LABS: BASO# 0.02 X1000 (0.0-0.2); BASO% 0.3 % (0.0-0.8); EOS# 0.12 X1000 (0.0-0.7); EOS% 1.6 % (0.0-10.0); HEMATOCRIT 27.3 % (37.0-47.0); HEMOGLOBIN 8.4 g/dL (12.0-16.0); IMM GRAN# 0.04 X1000 (0.0-0.04); IMM GRAN% 0.5 % (0.0-0.5); LYMPH# 1.84 X1000 (1.2-3.4); LYMPH% 25.1 % (20.5-51.1); MCH 26.8 PG (27-31); MCHC 30.8 g/dL (33-37); MCV 87.2 FL (81-99); MONO# 0.65 X1000 (0.11-0.59); MONO% 8.9 % (1.7-9.3); MPV 11.9 FL (7.4-10.4); NEUT# 4.65 X1000 (1.4-6.5); NEUT% 63.6 % (42.2-75.2); PLT 144 X1000 (130-400); RBC 3.13 XMIL (4.2-5.4); RDW 14.1 % (11.5-14.5); WBC 7.32 X1000 (4.8-10.8)
[2019-03-04 06:39] LABS: POTASSIUM 3.7 mmol/L (3.5-5.1)
--- NOTE | 2019-03-04 09:02 | PROGRESS NOTE ---
DATE: 03/04/2019 Dr. Rasheed Laura for Dr. Khai Obrien. SUBJECTIVE: The patient has no complaints. She is not very talkative at this time, but she did tell me she was not having any pain. I do not know what her baseline is, but she has had a history of dementia, schizophrenia, hypertension, hyperlipidemia. Apparently came in vomiting up coffee-ground material. OBJECTIVE: Vitals: Blood pressure is 125/87, respirations 18, pulse 92, temperature 98.8 degrees Fahrenheit. HEENT: She is normocephalic. Extraocular movements intact. PERRLA. Throat clear. Lungs: Clear to auscultation and percussion without rhonchi, rales, or wheezes. Heart: Regular rate and rhythm without murmurs, gallops, or friction rubs. Abdomen: Soft. Active bowel sounds. No organomegaly or tenderness. Neurological: The patient is not very talkative. This may be some baseline dementia and she has schizophrenia as well. She is on several medications. I do not know what her exact baseline is, but Dr. Obrien will. LABORATORY: Hemoglobin has dropped from 11.1 down to 8.4, hematocrit dropped from 35.8 down to 27.3. ASSESSMENT: 1. Upper gastrointestinal bleed. 2. Dementia. 3. Schizophrenia. 4. Hyperlipidemia. 5. History of hyperthyroidism. 6. Obesity. PLAN: We will continue to treat with proton pump inhibitors IV. We have consulted Gastroenterology. cc: MD Khai Hoyos Jr, MD
[2019-03-04] MEDS: SODIUM CHLORIDE 0.9% INJ SCH ×2 (09:03→09:04)
--- NOTE | 2019-03-04 09:11 | GASTROENTEROLOGY CONSULTATION ---
DATE: 03/04/2019 REASON FOR CONSULTATION: hematemesis HPI: Ms. Geni Arroyo is a 73 year old morbidly obese woman with HTN, HLD, IDDM2, dementia, schizophrenia, hyperthyroidism, diverticulosis, chronic constipation, BAMBI, GERD with h/o GI bleed from severe ulcerative esophagitis, h/o esophageal stricture, and hiatal hernia who presents from [facility] with coffee ground emesis. Patient unable to give ROS given underlying dementia. Per report, patient was having some abdominal pain and diarrhea. NO fever, CP, SOB, or reported melena. ROS: Unable to obtain; limited PMH: HTN, HLD, IDDM2, dementia, schizophrenia, hyperthyroidism, diverticulosis, BAMBI, GERD with h/o GI bleed from severe ulcerative esophagitis, h/o esophageal stricture, hiatal hernia, chronic constipation, morbid obesity PSH: Left wrist and elbow surgery SH: No history of smoking, alcohol, or illicit drug use. She has limited mobility. FH: No history of coronary disease. Unable to obtain GI history ALL: Penicillin CURRENT MEDICATIONS: B12 500 mcg p.o. daily, Cymbalta 30 mg p.o. daily, folic acid 1 mg p.o. daily, Lasix 40 mg p.o. daily, Lantus 35 units subcutaneous at bedtime, Linzess 145 mcg p.o. daily, lisinopril 20 mg p.o. q.a.m., methimazole 10 mg p.o. daily, Remeron 15 mg p.o. at bedtime, pantoprazole 40 mg p.o. daily, propranolol 10 mg p.o. t.i.d., risperidone 0.5 mg p.o. b.i.d. and 3 mg p.o. at bedtime, trazodone 50 mg p.o. at bedtime, valproic acid 500 mg p.o. at bedtime. PE: T98.8 HR 92 RR 18 BP 125/87 O2 97%RA GEN: awake, alert, NAD, AAOx2 (not to date) HEENT: anicteric, dryMM, poor dentition NECK: supple, no jvd CV: RRR, no murmurs PULM: CTAB, no wheezing or crackles ABD: obese, soft NT/ND, NABSx4 EXT: trace ankle edema, WWP NEURO: moving extremities symmetrically LABS: BUN 55 Cr 1.0 LFTs WNL WBC 7.3 hgb 8.4 from 11.1 (unknown baseline) plts 144K INR 1.0 EGD 05/03/2017 POSTOPERATIVE DIAGNOSES: 1. Severe ulcerative esophagitis with friability and oozing. 2. Hiatal hernia. EGD 01/2015 IMPRESSION: 1. Esophageal stricture, most likely peptic stricture. 2. Esophagitis, severe, biopsied. 3. Hiatal hernia. A/P: Ms. Geni Arroyo is a 73 year old morbidly obese woman with HTN, HLD, IDDM2, dementia, schizophrenia, hyperthyroidism, diverticulosis, chronic constipation, BAMBI, GERD with h/o GI bleed from severe ulcerative esophagitis, h/o esophageal stricture, and hiatal hernia who presents with coffee ground emesis likely esophagitis. She has had a couple of prior episodes of hematemesis from same etiology. She is not on blood thinners. Hgb dropped 3 grams over last 24 hours with fluids. She is on PPI IV BID. Will give clears and plan for diagnostic EGD tomorrow. She will need POA or next of kin to sign consent given underlying dementia. #UGIB: likely esophagitis - continue PPI IV BID - clear liquid diet - trend H/H q8-12hrs - maintain 2 large bore PIVs - NPO after MN for EGD with Dr. Brown tomorrow to rule out PUD and other etiologies for GIB #Anemia: h/o BAMBI: check iron, TIBC, ferritin #GERD with esophagitis: PPI as above #IDDM2: SSI #Schizophrenia/dementia: continue home meds #DVT ppx: SCDs; avoid blood thinners Will follow with you. Thank you for this consult cc: Khai Obrien MD [facility]
[2019-03-04 10:58] LABS: IRON SATURATION 13 %; TIBC 208 ug/dL; TOTAL IRON 27 ug/dL (49-151); UNBOUND IRON 181 ug/dL (112-346)
[2019-03-04 14:25] LABS: HEMATOCRIT 27.1 % (37.0-47.0); HEMOGLOBIN 8.5 g/dL (12.0-16.0)
[2019-03-04 21:17] LABS: HEMATOCRIT 27.5 % (37.0-47.0); HEMOGLOBIN 8.3 g/dL (12.0-16.0)
[2019-03-05] MEDS: HUMULIN R SUBQ SCH ×4 (06:07→21:39)
[2019-03-05 06:09] LABS: AGAP 11; BUN 33 mg/dL (8-22); CHLORIDE 115 mmol/L (98-107); COSMO 303; CREATININE 0.8 mg/dL (0.5-0.9); ESTIMATED GFR > 60; GLUCOSE 133 mg/dL (70-104); SODIUM 148 mmol/L (136-145); TCO2 22 mmol/L (25-35)
[2019-03-05] MEDS ORDERED: INSTA-GLUCOSE PO PRN (06:45)
--- NOTE | 2019-03-05 07:33 | PROGRESS NOTE ---
DATE: 03/05/2019 SUBJECTIVE: A 73-year-old, white, female patient, a resident of [facility]. Vague historian. Admitted with abdominal pain and coffee-grounds emesis. The patient evaluated in the ER. Admission history, physical, and GI consultation noted. The patient had a history of diverticulosis, chronic constipation, history of GI bleed from severe ulcerative esophagitis, esophageal stricture, hiatal hernia. The patient was also complaining of some diarrhea. No apparent bleeding per rectum. The patient does have multiple complex medical issues including diabetes mellitus, hypertension, hyperthyroidism. She denied any chest pain or palpitations. OBJECTIVE: Vital Signs: Noted. Neck: Supple. No JVD. Lungs: Bibasilar crepitations. Heart: S1 and S2 heard. Abdomen: Soft, globular. The patient is obese. Difficult to comment on organomegaly or mass. Extremities: No cyanosis, clubbing. Patient does have morbid obesity. [employer]: Alert, awake. Able to move all 4 limbs. Laboratory Data: Done yesterday, hemoglobin 8.3, hematocrit 27.5. Electrolytes checked today. Potassium 4, BUN 33, creatinine 0.8. Her renal function improved. CONSIDERATION: 1. The patient is admitted with a gastrointestinal bleed. PT/INR 1.03, PTT 36.2. Electrolyte results reviewed. 2. Her other problems include diabetes mellitus - on insulin, hypertension, morbid obesity, hyperthyroidism. Patient's labs and medications noted. The patient is scheduled to have upper gastrointestinal endoscopy today. I am going to check appropriate labs. Continue current treatment and close observation. cc: Khai Obrien MD
--- NOTE | 2019-03-05 08:24 | Diag Imaging Result Doc PS360 ---
EXAM: CT ABDOMEN/PELVIS W/O CONTRAST 03/05/2019 HISTORY: abd. pain TECHNIQUE: This exam was performed using automated exposure control, adjustment of mA or kV according to patient size, and/or use of iterative reconstruction technique. COMMENT: The current examination is compared with the previous study of 04/30/2017. There are patchy linear opacities present in the lower lobes which have not changed significantly since 04/30/2017. This is probably due to fibrotic scar formation. There is some motion artifact. There is a large hiatal hernia. The spleen is slightly enlarged measuring 13.8 cm in greatest dimension. This is slightly larger than on the previous examination. There are calcifications in the wall of the fundus of the gallbladder. This was also the case previously. The adrenal glands are not enlarged. There is no evidence of hydronephrosis or stones. The kidneys are somewhat lobulated bilaterally and there is at least one hyperdense cyst in the left kidney. The aorta is not distended. There is no evidence of bowel obstruction. There is no evidence of appendicitis. There are diverticula present in the colon particularly the descending and proximal sigmoid colon. There is some stool and gas in the rectum. The urinary bladder is not distended. There are calcifications throughout the uterus with apparent myometrial masses consistent with fibroids. There is what appears to be a pedunculated fibroid on the right side of the fundus which has not changed since the previous study. The regional skeleton is stable in appearance. IMPRESSION: Porcelain gallbladder. Fibroid uterus. Mildly enlarged spleen. Diverticulosis coli. Electronically signed by Los Barraza 03/05/2019 8:21 AM
[2019-03-05] MEDS: RISPERDAL PO SCH ×3 (08:56→21:39)
[2019-03-05] MEDS: CARAFATE LIQUID PO SCH ×3 (08:56→21:38)
[2019-03-05] MEDS ORDERED: VITAMIN D PO SCH (09:00)
[2019-03-05] MEDS: PROTONIX IV SCH ×2 (10:00→21:39)
[2019-03-05] MEDS: SODIUM CHLORIDE 0.9% INJ SCH (10:00)
--- NOTE | 2019-03-05 11:35 | OPERATIVE NOTE ---
PROCEDURE DATE: 03/03/2019 ATTENDING PHYSICIAN: Khai Obrien MD TITLE OF PROCEDURE: Esophagogastroduodenoscopy. PREOPERATIVE DIAGNOSES: 1. Hematemesis. 2. Anemia. 3. Reflux. 4. Gastrointestinal bleed. POSTOPERATIVE DIAGNOSES: 1. Esophagitis distal esophagus, LA grade 3. 2. Z-line was at 40 cm. There was evidence of a 2-cm sliding hiatal hernia. There was evidence of normal stomach in the body and antrum. 3. Evidence of hiatal hernia on retroflexion; Retroflexion revealed normal incisura. 4. Normal duodenal bulb and second portion of duodenum. ESTIMATED BLOOD LOSS: None. COMPLICATIONS: None. ANESTHESIA: Monitored anesthesia care per the anesthesiologist. SPECIMENS: None. DETAILS OF OPERATION: After informed consent, the patient explained the risks, benefits, indications, and alternatives to the procedure discussed with the patient for EGD. Patient was brought to the OR. Patient was turned onto the left lateral position. A bite block was placed in patient mouth. After adequate monitored anesthesia care, the upper endoscope was introduced and advanced all the way to the second portion of duodenum. The esophagus showed evidence of erythema, friability, ulcerations in the distal esophagus suggesting esophagitis, LA grade 3. Z- line visualized at 40 cm. There was evidence of a 2-cm sliding hiatal hernia. There was no evidence of any ulceration of the hiatal sac. The stomach and body, antrum appeared normal. Retroflexion revealed normal incisura. Retroflexion in the stomach revealed hiatal hernia, sliding type. Duodenal bulb and second portion of duodenum appeared normal. There was no evidence of any fresh blood or old blood in the entire EGD. The air was aspirated and the scope withdrawn. The patient tolerated the procedure well and currently being monitored in the OR in stable condition. RECOMMENDATIONS: 1. The patient will start on Iron C b.i.d. for 3 months. We will continue patient on Protonix 40 mg once daily for 3 months and then wean down to Zantac 150 mg p.o. b.i.d. Start the patient on Dulcolax 10 mg per rectal at bedtime for bowel regimen. 2. The patient will be kept on a full liquid diet and advanced as tolerated. 3. The patient will be on aspiration precautions. 4. The patient to follow gastroesophageal reflux life changes. Avoid excessive tea, coffee, soda, tomatoes, onions, spicy foods. 5. Further recommendations to follow pending hospital course. cc: MD Khai De Oliveira MD MTDD
[2019-03-05 11:45] LABS: BASO# 0.01 X1000 (0.0-0.2); BASO% 0.3 % (0.0-0.8); EOS# 0.28 X1000 (0.0-0.7); EOS% 7.3 % (0.0-10.0); HEMATOCRIT 26.7 % (37.0-47.0); HEMOGLOBIN 7.9 g/dL (12.0-16.0); IMM GRAN# 0.03 X1000 (0.0-0.04); IMM GRAN% 0.8 % (0.0-0.5); LYMPH# 1.08 X1000 (1.2-3.4); LYMPH% 28.1 % (20.5-51.1); MCH 26.7 PG (27-31); MCHC 29.6 g/dL (33-37); MCV 90.2 FL (81-99); MONO# 0.37 X1000 (0.11-0.59); MONO% 9.6 % (1.7-9.3); MPV 11.6 FL (7.4-10.4); NEUT# 2.07 X1000 (1.4-6.5); NEUT% 53.9 % (42.2-75.2); PLT 118 X1000 (130-400); RBC 2.96 XMIL (4.2-5.4); RDW 14.5 % (11.5-14.5); WBC 3.84 X1000 (4.8-10.8)
[2019-03-05] MEDS: FOLIC ACID PO SCH (12:54)
[2019-03-05] MEDS: LASIX PO SCH (12:54)
[2019-03-05] MEDS: VITAMIN B-12 PO SCH (12:54)
[2019-03-05] MEDS: TAPAZOLE PO SCH (12:55)
[2019-03-05] MEDS: CYMBALTA PO SCH (12:55)
[2019-03-05 14:44] LABS: HEMATOCRIT 27.9 % (37.0-47.0); HEMOGLOBIN 8.3 g/dL (12.0-16.0)
[2019-03-05 17:16] LABS: INR 1.02; PROTIME 14.3 Seconds (11.0-16.0)
--- NOTE | 2019-03-05 18:59 | GENERAL SURGERY CONSULTATION ---
DATE: 03/05/2019 HISTORY OF PRESENT ILLNESS: A 72-year-old female patient in the [facility] with schizophrenia, hypertension, hyperlipidemia, diabetes, hypothyroidism, diverticulosis, chronic constipation, gastroesophageal reflux disease, and history of ulcerative esophagitis with stricture and bleeding and hiatal hernia. She presents from [facility] with coffee- ground emesis. PAST MEDICAL HISTORY: Medical history as included in her HPI. PAST SURGICAL HISTORY: Left wrist and elbow. SOCIAL HISTORY: No current tobacco, alcohol or drugs. Immobile and lives in a nursing facility. FAMILY HISTORY: Reviewed. Noncontributory. MEDICATIONS: Extensive per her MAR. She does take Lasix and Linzess. I do not see any anticoagulants. PHYSICAL EXAMINATION: Vital Signs: She is afebrile, pulse 86, blood pressure 104/75. Oxygen saturation 98%. General: She is chronically ill-appearing. HEENT: no scleral icterus, poor dentition Cardiovascular: Normal rate. Pulmonary: No increased work of breathing. Abdomen: Soft, nontender, nondistended. Integument: Warm and dry. Psychiatric: Appropriate affect. Neurologic: No gross deficits other than this generalized slowing, weakness. LABORATORY DATA: White count 3, hematocrit 27, creatinine 0.8. Glucose has been as high as 276 or 296 even. Her LFTs were normal on admission. Albumin is low at 3.3. INR is 1.02. I have reviewed her abdomen and pelvis which shows calcific changes of the gallbladder wall, possibly this is a gallstone. She has fibroids in her uterus and large spleen diverticulosis. ASSESSMENT AND PLAN: A 73-year-old female with apparent upper GI bleed. She had an endoscopy that failed to show the source of this other than some esophagitis. This is a very chronically ill female, doubtful to benefit from a cholecystectomy, although there is somewhat of an increased risk if this is in fact porcelain gallbladder. I reviewed this. There is a possibility that this is a rim calcified gallstone. We will monitor her closely, going forward, but no plans for surgical intervention. cc: MD Khai López MD MTDD
[2019-03-05 19:29] LABS: BASO# 0.02 X1000 (0.0-0.2); BASO% 0.4 % (0.0-0.8); EOS% 4.5 % (0.0-10.0); HEMATOCRIT 27.8 % (37.0-47.0); HEMOGLOBIN 8.4 g/dL (12.0-16.0); IMM GRAN# 0.05 X1000 (0.0-0.04); IMM GRAN% 1.1 % (0.0-0.5); LYMPH# 0.94 X1000 (1.2-3.4); LYMPH% 21.1 % (20.5-51.1); MCH 27.5 PG (27-31); MCHC 30.2 g/dL (33-37); MCV 91.1 FL (81-99); MONO# 0.43 X1000 (0.11-0.59); MONO% 9.7 % (1.7-9.3); MPV 11.9 FL (7.4-10.4); NEUT# 2.81 X1000 (1.4-6.5); NEUT% 63.2 % (42.2-75.2); PLT 131 X1000 (130-400); RBC 3.05 XMIL (4.2-5.4); RDW 14.6 % (11.5-14.5); WBC 4.45 X1000 (4.8-10.8)
[2019-03-05] MEDS ORDERED: BASAGLAR SUBQ SCH (21:00)
[2019-03-05 21:24] LABS: HEMATOCRIT 27.1 % (37.0-47.0); HEMOGLOBIN 8.2 g/dL (12.0-16.0)
[2019-03-05] MEDS: DESYREL PO SCH (21:38)
[2019-03-05] MEDS: DULCOLAX PR SCH (21:38)
[2019-03-05] MEDS ORDERED: INSULIN PEN NEEDLES ONE (21:39)
[2019-03-05] MEDS: REMERON PO SCH (21:39)
[2019-03-05] MEDS: ICAR-C PO SCH (21:39)
[2019-03-05] MEDS: BASAGLAR SUBQ SCH (22:06)
[2019-03-05] MEDS: DEPAKENE LIQUID PO SCH (22:06)
[2019-03-06] MEDS: CARAFATE LIQUID PO SCH ×4 (02:19→20:22)
[2019-03-06] MEDS: HUMULIN R SUBQ SCH ×4 (06:00→20:21)
[2019-03-06] MEDS: RISPERDAL PO SCH ×3 (06:06→20:22)
[2019-03-06 06:35] LABS: BASO# 0.02 X1000 (0.0-0.2); BASO% 0.4 % (0.0-0.8); EOS# 0.34 X1000 (0.0-0.7); EOS% 6.8 % (0.0-10.0); HEMATOCRIT 28.9 % (37.0-47.0); HEMOGLOBIN 8.7 g/dL (12.0-16.0); IMM GRAN# 0.03 X1000 (0.0-0.04); IMM GRAN% 0.6 % (0.0-0.5); LYMPH# 1.63 X1000 (1.2-3.4); LYMPH% 32.5 % (20.5-51.1); MCH 26.5 PG (27-31); MCHC 30.1 g/dL (33-37); MCV 88.1 FL (81-99); MONO# 0.56 X1000 (0.11-0.59); MONO% 11.2 % (1.7-9.3); MPV 11.5 FL (7.4-10.4); NEUT# 2.43 X1000 (1.4-6.5); NEUT% 48.5 % (42.2-75.2); PLT 138 X1000 (130-400); RBC 3.28 XMIL (4.2-5.4); RDW 14.4 % (11.5-14.5); WBC 5.01 X1000 (4.8-10.8)
[2019-03-06 06:57] LABS: AGAP 3; ALB/GLOB RATIO 1.2; ALKALINE PHOSPHATASE 75 U/L (32-104); BUN 17 mg/dL (8-22); CALCIUM 8.4 mg/dL (8.8-10.2); CHLORIDE 104 mmol/L (98-107); COSMO 290; CREATININE 0.7 mg/dL (0.5-0.9); ESTIMATED GFR > 60; GLUCOSE 130 mg/dL (70-104); GOT 21 U/L (10-30); GPT 21 U/L (10-36); POTASSIUM 3.2 mmol/L (3.5-5.1); SODIUM 144 mmol/L (136-145); TCO2 37 mmol/L (25-35); TOTAL BILIRUBIN 0.28 mg/dL (0.20-1.00); TOTAL PROTEIN 5.5 g/dL (6.3-8.3)
--- NOTE | 2019-03-06 07:33 | PROGRESS NOTE ---
DATE: 03/06/2019 SUBJECTIVE: Ms. Arroyo is doing fair. The patient still had some melenic stool which I think most likely is due to old blood in the GI tract. Patient is a vague historian. No major abdominal pain. She denied any chest pain or palpitations. No dysuria or hematuria. No diarrhea. No unusual cough or expectoration. Her CT scan of the abdomen and pelvis, results reviewed. Surgical consult noted. PHYSICAL EXAMINATION: Vital Signs: Blood pressure 122/69, pulse 69, respirations 15, temperature 98.1 degrees, O2 saturation was 99%. Neck: Supple. No JVD. Lungs: Bibasilar crepitations. Heart: S1 and S2 heard. Abdomen: Soft, globular. Bowel sounds present. Difficult to comment on organomegaly. Extremities: No cyanosis, clubbing. No acute DVT. REGISTERED PHARMACY TECHNICIAN: Alert, awake. Able to move all 4 limbs. LABORATORY DATA: Ordered for today, results are pending. Last hemoglobin was 8.2, hematocrit 27.1. I am going to check today's labs. CONSIDERATIONS: 1. Upper gastrointestinal bleed. Roller Skates [employer] following patient with us. Her upper gastrointestinal endoscopy revealed distal esophagitis and hiatal hernia. 2. Morbid obesity. 3. History of hyperthyroidism. 4. Hypertension. 5. Diabetes mellitus, on insulin. PLAN: Patient is on proton pump inhibitor. We will check appropriate labs. Continue current treatment. If needed, I am planning to give her blood transfusion. I resumed her antidepressant and antipsychotic medicine. Out of bed to chair. Overall plan discussed with the patient and she is in agreement. cc: Khai Obrien MD
[2019-03-06] MEDS: TAPAZOLE PO SCH (08:16)
[2019-03-06] MEDS: CYMBALTA PO SCH (08:16)
[2019-03-06] MEDS: ICAR-C PO SCH ×2 (08:16→20:22)
[2019-03-06] MEDS: FOLIC ACID PO SCH (08:16)
[2019-03-06] MEDS: LASIX PO SCH (08:16)
[2019-03-06] MEDS: PROTONIX IV SCH ×2 (08:16→20:21)
[2019-03-06] MEDS: VITAMIN B-12 PO SCH (08:16)
--- NOTE | 2019-03-06 11:37 | PROVIDER PROGRESS NOTE ---
Progress Note SUBJECTIVE: No acute overnight events. Afebrile. No N/V/F, CP, SOB, hematemesis. She is tolerating diet. Small melenic stool this AM OBJECTIVE: Last Vital Signs Temp 98.1 F 03/06/19 07:58 Pulse 77 03/06/19 07:58 Resp 14 03/06/19 07:58 BP 156/54 03/06/19 07:58 Pulse Ox 98 03/06/19 07:58 Height 5 ft 2 in Weight 227 lb 3 oz GEN: awake, alert, NAD HEENT: anicteric, MMM CV: RRR, no murmurs PULM: CTAB, no wheezing ABD; soft NT/ND, NABS EXT: WWP, no cc NEURO: moving all extremities LABS: 03/06/19 03/06/19 03/06/19 05:20 05:20 05:20 WBC 5.01 Hgb 8.7 L Hct 28.9 L Plt Count 138 Sodium 144 Potassium 3.2 L D Chloride 104 Carbon Dioxide 37 H BUN 17 Creatinine 0.7 Glucose 130 H Total Bilirubin 0.28 AST 21 ALT 21 Alkaline Phosphatase 75 Ammonia 40 Total Protein 5.5 L Albumin 3.0 L EGD 03/05 POSTOPERATIVE DIAGNOSES: 1. Esophagitis distal esophagus, LA grade 3. 2. Z-line was at 40 cm. There was evidence of a 2-cm sliding hiatal hernia. There was evidence of normal stomach in the body and antrum. 3. Evidence of hiatal hernia on retroflexion; Retroflexion revealed normal incisura. 4. Normal duodenal bulb and second portion of duodenum. A/P: Ms. Geni Arroyo is a 73 year old morbidly obese woman with HTN, HLD, IDDM2, dementia, schizophrenia, hyperthyroidism, diverticulosis, chronic constipation, BAMBI, GERD who presents with recurrent GI bleed from severe LA grade C esophagitis. Her hgb is stable although she had small melenic stool, which likely represents old blood. #UGIB: 2/2 esophagitis - transition PPI to PO BID for 12 weeks, then once daily for GERD - trend H/H daily, transfuse as needed to mantain hgb 7-8 #Anemia: continue iron #GERD with esophagitis: PPI as above #IDDM2: SSI #Schizophrenia/dementia: continue home meds #DVT ppx: SCDs; avoid blood thinners Will sign off. Please call with questions
[2019-03-06] MEDS ORDERED: KLOR-CON PO ONE (15:15)
[2019-03-06] MEDS ORDERED: NS 500 ML IV SCH (16:45)
[2019-03-06] MEDS: BASAGLAR SUBQ SCH (20:21)
[2019-03-06] MEDS: REMERON PO SCH (20:22)
[2019-03-06] MEDS: DESYREL PO SCH (20:22)
[2019-03-06] MEDS: DEPAKENE LIQUID PO SCH (20:22)
[2019-03-06] MEDS: DULCOLAX PR SCH (20:22)
[2019-03-07] MEDS: CARAFATE LIQUID PO SCH ×3 (02:19→15:07)
[2019-03-07] MEDS: RISPERDAL PO SCH ×3 (05:50→11:11)
[2019-03-07] MEDS: HUMULIN R SUBQ SCH ×3 (06:01→17:37)
[2019-03-07 06:08] LABS: AGAP 11; BUN 13 mg/dL (8-22); CALCIUM 8.3 mg/dL (8.8-10.2); CHLORIDE 107 mmol/L (98-107); COSMO 291; CREATININE 0.7 mg/dL (0.5-0.9); ESTIMATED GFR > 60; GLUCOSE 111 mg/dL (70-104); POTASSIUM 3.5 mmol/L (3.5-5.1); SODIUM 146 mmol/L (136-145); TCO2 28 mmol/L (25-35)
[2019-03-07 06:24] LABS: BASO# 0.02 X1000 (0.0-0.2); BASO% 0.4 % (0.0-0.8); EOS# 0.33 X1000 (0.0-0.7); EOS% 5.9 % (0.0-10.0); HEMATOCRIT 34.1 % (37.0-47.0); IMM GRAN# 0.03 X1000 (0.0-0.04); IMM GRAN% 0.5 % (0.0-0.5); LYMPH# 1.38 X1000 (1.2-3.4); LYMPH% 24.8 % (20.5-51.1); MCH 28.2 PG (27-31); MCHC 32.3 g/dL (33-37); MCV 87.4 FL (81-99); MONO# 0.58 X1000 (0.11-0.59); MONO% 10.4 % (1.7-9.3); MPV 11.6 FL (7.4-10.4); NEUT# 3.23 X1000 (1.4-6.5); PLT 121 X1000 (130-400); RDW 14.2 % (11.5-14.5); WBC 5.57 X1000 (4.8-10.8)
--- NOTE | 2019-03-07 07:31 | DISCHARGE SUMMARY ---
ADMISSION DATE: 03/03/2019 DISCHARGE DATE: SUBJECTIVE: Ms. Arroyo is a 73-year-old female patient resident of [facility] admitted with coffee-ground emesis. The patient does have multiple complex medical problems including hypertension, diabetes mellitus, hyperlipidemia, dementia, schizophrenia, and morbid obesity. The patient is very vague and poor historian. She had a history of hyperthyroidism, back pain, admission history and physical noted. Her admission hemoglobin was 11.1, and it dropped down to 8.3 and hematocrit 27.5. HOSPITAL COURSE: Patient was admitted to CICU. GI consult obtained with Dr. Brown. The patient underwent upper GI endoscopy which did reveal esophagitis, distal esophagus, evidence of hiatal hernia, normal duodenal bulb and second portion of duodenum. The patient's hemoglobin and hematocrit at one time dropped down to 7.9, and it stayed around 8.2 to 8.7. The patient does have compromised cardiopulmonary status with her morbid obesity. I decided to transfuse patient 2 units of packed RBC's. The patient tolerated it well. The patient is doing better. She is tolerating food well. GI was happy with her progress. I am going to talk to medical technicians before discharge today. I did CT scan of the abdomen and pelvis which did reveal porcelain gallbladder, fibroid uterus, mildly enlarged spleen, and diverticulosis coli. Surgical consult obtained with Dr. Riley, and he recommended to watch patient. No surgical intervention at this time. Overall, patient received maximum benefit of hospitalization. The patient is eager to go home. PHYSICAL EXAMINATION: Her vitals are signs noted. Neck: Supple. No JVD. Lungs: Bibasilar crepitations. Heart: S1 and S2 heard. Abdomen: Soft and globular. Bowel sounds are present. Difficult to comment on organomegaly. Nontender. Patient does have significant obesity. GED INSTRUCTOR: Alert and awake able to move all 4 limbs. LABORATORY DATA: Hemoglobin 11, hematocrit 34.1, WBC count 5.57 and platelet count 121,000. Electrolytes done today show potassium 3.5. The rest is fairly benign. ASSESSMENT: Overall, discharge condition satisfactory. We will discharge patient home. Fall precautions. I am going to send her home with PICC line which needs to be removed in 3 days if she does not have any more GI bleed. We will repeat blood work and close observation. In case of more distress, we will send patient back to the ER. Will repeat blood work. Continue antipsychotic medication. DISCHARGE PLAN: Overall plan discussed with the patient and she is in agreement. cc: Khai Obrien MD MTDShawna
[2019-03-07] MEDS ORDERED: NS 250 ML ONE (07:53)
[2019-03-07] MEDS: FOLIC ACID PO SCH (08:17)
[2019-03-07] MEDS: CYMBALTA PO SCH (08:17)
[2019-03-07] MEDS: TAPAZOLE PO SCH (08:17)
[2019-03-07] MEDS: ICAR-C PO SCH (08:17)
[2019-03-07] MEDS: VITAMIN B-12 PO SCH (08:17)
[2019-03-07] MEDS: PROTONIX IV SCH (08:17)
[2019-03-07] MEDS: LASIX PO SCH (08:17)
--- NOTE | 2019-03-07 13:29 | Diag Imaging Result Doc PS360 ---
EXAM: CHEST-PORTABLE HISTORY: rehab TECHNIQUE: Chest single view COMPARISON: 10/22/2018 FINDINGS: Poor inspiratory effort. The heart is not enlarged. No pneumonia. No pleural effusions identified. There is a right-sided PICC line. IMPRESSION: Cardiomegaly Electronically signed by Issa Coffman 03/07/2019 1:27 PM
[2019-03-07 15:32] VITALS: BP 141/67
--- NOTE | 2019-03-16 02:46 | DISCHARGE SUMMARY ---
ADMISSION DATE: 03/03/2019 DISCHARGE DATE: 03/07/2019 ADDENDUM: After reviewing her EGD record, possibility of ulcerative esophagitis cannot be ruled out. cc: Khai Obrien MD
== END 2019-03-07 18:13 | DRG 381 ==
LOC: SUPCPDRO → ED 18:12 → 3S 22:17 → SUATTDRO 22:17
PROVIDERS: ADMIT Internal Medicine; ATTEND Internal Medicine
CPT/HCPCS: 36430; 36569; 71010; 71045; 74176; 80048; 80053; 82140; 82270; 82728; 82948; 83540; 83550; 83735; 85014; 85018; 85025; 85610; 85730; 86850; 86900; 86901; 86920; 96361; 96374; 99284; A9270; C9113; J7030; J7040; J7050; P9016; S0164; XXXXX